=== PATIENT | female | born 1980 | race Caucasian/White ===

== ENCOUNTER 2016-08-12 15:54 | Emergency (ER) | payer OTHER ==
[~2016-08-12] VITALS: Ht 154.9 cm; Wt 68.0 kg
[~2016-08-12 15:54] MED LIST: IRON27TA PO
[2016-08-12 16:07] VITALS: BP 120/85; PULSE 111; RESP 16; TEMP 98.1; O2SAT 98
== END 2016-08-12 16:20 | disposition left against medical advice (07) ==
LOC: PHED 15:54
DX: L08.9 Local infection of the skin and subcutaneous tissue, unspecified (principal)
CPT/HCPCS: 99281

== ENCOUNTER 2016-12-19 13:31 | Emergency (ER) | payer OTHER ==
[~2016-12-19] VITALS: Ht 154.9 cm; Wt 69.6 kg
[2016-12-19 13:45] VITALS: BP 125/89; PULSE 93; RESP 18; TEMP 98.8; O2SAT 100
[2016-12-19] MEDS ORDERED: CLON1 PO (13:56)
--- NOTE | 2016-12-19 14:31 | PD ---
HPI Chief Complaint: Fall Time Seen by Provider: 14:10 Travel History International Travel<30 days: No Contact w/Intl Traveler<30days: No Traveled to known affect area: No History of Present Illness HPI 36-year-old female presents to the emergency room for evaluation of mid back pain, right calf pain, and left-sided neck pain after falling down 4 steps 2 days ago. Patient states she slipped and fell backwards striking her back on the step before sliding down the stairs. She may have hit her head but denies loss of consciousness. Patient states it feels like her neck and leg are spasming. This occurs occasionally throughout the day. She has been taking 200 -800 mg ibuprofen without any relief in symptoms. Patient states she cannot take muscle relaxers because they make her feel sick. She is requesting Lortab for pain. She has been ambulatory since falling. She denies upper or lower extremity paresthesias, saddle anesthesia, or loss of bowel or bladder control, nausea or vomiting, dizziness, headache, and is not taking blood thinners. Her only medication is Klonopin. PFSH Past Medical History Anemia: Yes Anxiety: Yes (PANIC ATTACKS) Depression: No Cancer: Yes (PRE-CANCEROUS CERVICAL 2011) Cardiovascular Problems: Yes Chest Pain: Yes Congestive Heart Failure: No Diabetes: No Diminished Hearing: No Endocrine: No Gastrointestinal Disorders: Yes GERD: No Genitourinary: Yes (BLADDER INFECTIONS CYSTOCELE) Headaches: Yes Hepatitis: No Hiatal Hernia: No Hypertension: No Implanted Vascular Access Dvce: No Kidney Stones: Yes Medical other: Yes (ANEMIA) Musculoskeletal: Yes (BACK PAIN) Neurologic: Yes (BRAIN EMBOLUS ) Psychiatric: Yes Reproductive: Yes (HPV + HX PVD) Respiratory: No Immunizations Current: Yes Seizures: Yes (DRUG INDUCED) Thyroid Disease: No Tetanus Vaccination: > 5 Years Influenza Vaccination: No PNEUMOCCOCAL Vaccine (Year): 2 ?: Not LMP: Now : 2 Para: 2 Ovarian Cysts: Yes Tubal Ligation: Yes (2003) Past Surgical History Abdominal Surgery: Yes (GASTRIC BYPASS 2005) Genitourinary Surgery: Yes (GASTRIC BYPASS) Gynecologic Surgery: Yes (CRYO OF GEN WARTS) Pacemaker: No Other Surgery: Yes (BREAST REDUX/TUMMY TUCK./neck cysts apr 2012) Social History Alcohol Use: Yes (OCC) Tobacco Use: No Substance Use: Yes (DENIES) Allergies-Medications (Allergen,Severity, Reaction): Coded Allergies: Bactrim (Verified Allergy, Severe, Rash, 12/19/16) Ibuprofen (Verified Allergy, Severe, VOMIT, 12/19/16) Sulfa (Verified Allergy, Severe, Rash, 12/19/16) Tramadol (Verified Allergy, Severe, Seizures , 12/19/16) Pt states no allergy to Tramadol Trazodone (Verified Allergy, Severe, Throat swelling, 12/19/16) Lisinopril (Verified Allergy, Unknown, 12/19/16) *MDRO Multi-Drug Resistant Organism (Verified Adverse Reaction, Unknown, ) ESBL Reported Meds & Prescriptions Reported Meds & Active Scripts Active Reported Klonopin (Clonazepam) 1 Mg Tab 1 Mg PO BID Review of Systems Except as stated in HPI: all other systems reviewed are Neg Physical Exam Narrative GENERAL: Well-nourished, well-developed female in no acute distress. Afebrile. Ambulatory. SKIN: Focused skin assessment warm/dry. Small ecchymosis on the right knee and right ankle. HEAD: Normocephalic. EYES: No scleral icterus. No injection or drainage. EARS: Bilateral pinnae and external canals appear within normal limits. Bilateral tympanic membranes without erythema, dullness or perforation. No hemotympanum. BACK: No CVA tenderness. No rash. No point tenderness on palpation of the spine. Full range of motion. CARDIOVASCULAR: Regular rate and rhythm without murmurs, gallops, or rubs. RESPIRATORY: Breath sounds equal bilaterally. No accessory muscle use. BACK: No CVA tenderness. No rash. Mild to moderate point tenderness on palpation of the thoracic spine. Data Data Last Documented VS Vital Signs Date Time Temp Pulse Resp B/P Pulse Ox O2 Delivery O2 Flow Rate FiO2 12/19/16 13:45 98.8 93 18 125/89 100 Orders Spine, Thoracic-Ap/Lat/Sw(3vw) (12/19/16 ) MDM Medical Decision Making Medical Screen Exam Complete: Yes Emergency Medical Condition: Yes Medical Record Reviewed: Yes Differential Diagnosis Muscle spasm, sprain, strain, contusion, fracture unlikely Narrative Course 36-year-old female presents to the emergency room for evaluation of mid back pain, right calf pain, and left neck pain after falling down 4 stairs 2 days ago. Patient fell backward landing on the stairs before sliding down. She may have hit her head but denies loss of consciousness. States ibuprofen hasn't been helping. Physical exam reveals mild ecchymosis to the right knee and right ankle. She has midline tenderness of the thoracic spine. No tenderness of the cervical spine. Full range of motion of the cervical spine. Patient is ambulatory. No focal neurological deficits. No evidence of basilar skull fracture. [facility] CT head and neck rules exclude need for imaging at this time. Patient requested Lortab for pain. She has history of drug-induced mood disorder 2 years ago. According to daughter drug monitoring program, patient last received #30 of narcotic pain medication in July. She was informed that narcotic pain medication is not indicated for contusion. She was offered muscle relaxers but declined. Told to take Tylenol and Motrin, apply ice and follow up with a primary care physician. She understands and agrees to plan. Diagnosis Primary Impression: Contusion of right leg Qualified Code: S80.11XA - Contusion of right leg, initial encounter Additional Impressions: Back contusion Qualified Code: S20.229A - Back contusion, unspecified laterality, initial encounter Cervical strain, acute Qualified Code: S16.1XXA - Cervical strain, acute, initial encounter Referrals: Primary Care Physician Patient Instructions: Contusion in Adults (ED), General Instructions Additional Instructions: Rest and drink plenty of fluids. Take ibuprofen with food as directed, as needed for pain. Apply ice to the affected area for 20 minutes at a time, as needed for pain and swelling. Follow-up with a primary care physician. Return to the emergency room for worsening symptoms. Disposition: 01 DISCHARGE HOME Condition: Stable Amanda Kendall Dec 19, 2016 14:31
--- NOTE | 2016-12-19 15:14 | RADRPT ---
EXAM DATE/TIME: 12/19/2016 14:53 [facility] COMPARISON: No previous studies available for comparison. INDICATIONS : Fell, upper back pain MEDICAL HISTORY : None. SURGICAL HISTORY : None. ENCOUNTER: Initial ACUITY: 2 days PAIN SCORE: 9/10 LOCATION: Bilateral upper back FINDINGS: There is normal alignment of the thoracic vertebral bodies. Vertebral body height is maintained. No evidence of fracture or subluxation. Pedicles are intact at all levels. The paravertebral reflecti ons are not thickened. Clips are seen in the left upper quadrant. CONCLUSION: No acute disease. Marquez Hopkins MD on December 19, 2016 at 15:10 Board Certified Radiologist. This report was verified electronically.
== END 2016-12-19 15:27 | disposition home or self-care (01) ==
LOC: PHEFT 13:31
DX: S80.11XA Contusion of right lower leg, initial encounter (principal); S20.229A Contusion of unspecified back wall of thorax, initial encounter; S16.1XXA Strain of muscle, fascia and tendon at neck level, initial encounter; F41.0 Panic disorder [episodic paroxysmal anxiety]; D64.9 Anemia, unspecified; Z98.84 Bariatric surgery status; W10.9XXA Fall (on) (from) unspecified stairs and steps, initial encounter; Y99.9 Unspecified external cause status; Y93.9 Activity, unspecified; Y92.9 Unspecified place or not applicable
CPT/HCPCS: 72072; 99283

== ENCOUNTER 2017-01-26 14:58 | Emergency (ER) | payer OTHER ==
[~2017-01-26] VITALS: Ht 154.9 cm; Wt 70.0 kg
[~2017-01-26 14:58] MED LIST changes: +CLON1 PO; -IRON27TA PO
[2017-01-26 14:59] VITALS: BP 132/66; PULSE 110; RESP 20; TEMP 98.9; O2SAT 96
--- NOTE | 2017-01-26 15:31 | PD ---
HPI Chief Complaint: Chest Pain Time Seen by Provider: 15:30 Travel History International Travel<30 days: No Contact w/Intl Traveler<30days: No Traveled to known affect area: No History of Present Illness HPI 36 YO F presents to the ED for evaluation of LEFT back upper back pain. Patient states that she is clumsy, but can identify no acute trauma or recent overuse. She denies CP, palpitations, shortness of breath, diaphoresis, nausea vomiting. She also complains of "spider bite" on the right thumb 2 days. She denies IV drug use. She states that "my cat catches a lot of spiders." She denies numbness, tingling, weakness, limitations to range of motion of the hand. No treatment attempt at home. PFSH Past Medical History Anemia: Yes Anxiety: Yes (PANIC ATTACKS) Depression: No Cancer: Yes (PRE-CANCEROUS CERVICAL 2011) Cardiovascular Problems: Yes Chest Pain: Yes Congestive Heart Failure: No Diabetes: No Diminished Hearing: No Endocrine: No Gastrointestinal Disorders: Yes GERD: No Genitourinary: Yes (BLADDER INFECTIONS CYSTOCELE) Headaches: Yes Hepatitis: No Hiatal Hernia: No Hypertension: No Implanted Vascular Access Dvce: No Kidney Stones: Yes Musculoskeletal: Yes (BACK PAIN) Neurologic: Yes (BRAIN EMBOLUS ) Psychiatric: Yes Reproductive: Yes (HPV + HX PVD) Respiratory: No Immunizations Current: Yes Seizures: Yes (DRUG INDUCED) Thyroid Disease: No PNEUMOCCOCAL Vaccine (Year): 2 ?: Not : 2 Para: 2 Ovarian Cysts: Yes Tubal Ligation: Yes (2003) Past Surgical History Abdominal Surgery: Yes (GASTRIC BYPASS 2005) Genitourinary Surgery: Yes (GASTRIC BYPASS) Gynecologic Surgery: Yes (CRYO OF GEN WARTS) Pacemaker: No Other Surgery: Yes (BREAST REDUX/TUMMY TUCK./neck cysts apr 2012) Social History Alcohol Use: Yes (OCC) Tobacco Use: No Substance Use: Yes (DENIES) Allergies-Medications (Allergen,Severity, Reaction): Coded Allergies: Bactrim (Verified Allergy, Severe, Rash, 01/26/17) Ibuprofen (Verified Allergy, Severe, VOMIT, 01/26/17) Sulfa (Verified Allergy, Severe, Rash, 01/26/17) Tramadol (Verified Allergy, Severe, Seizures , 01/26/17) Pt states no allergy to Tramadol Trazodone (Verified Allergy, Severe, Throat swelling, 01/26/17) Lisinopril (Verified Allergy, Unknown, 01/26/17) *MDRO Multi-Drug Resistant Organism (Verified Adverse Reaction, Unknown, ) ESBL Reported Meds & Prescriptions Reported Meds & Active Scripts Active Clindamycin (Clindamycin HCl) 150 Mg Cap 450 Mg PO Q6H 7 Days Reported Klonopin (Clonazepam) 1 Mg Tab 1 Mg PO BID Review of Systems Except as stated in HPI: all other systems reviewed are Neg Physical Exam Narrative GENERAL: Well-nourished, well-developed white female in no acute distress. SKIN: Focused skin assessment warm/dry. SKIN: There is an indurated area in the MP joint of right thumb which measures about 2 cm in diameter. It is fluctuant but there is no pointing or drainage. There is a zone of inflammation around it but no lymphangitis. HEAD: Normocephalic. EYES: No scleral icterus. No injection or drainage. NECK: Supple, trachea midline. No JVD or lymphadenopathy. CARDIOVASCULAR: Regular rate and rhythm without murmurs, gallops, or rubs. RESPIRATORY: Breath sounds clear and equal bilaterally. No accessory muscle use. GASTROINTESTINAL: Abdomen soft, non-tender, nondistended. Active bowel sounds. MUSCULOSKELETAL: No cyanosis, or edema. FOCUSED RIGHT UPPER EXTREMITY EXAM: 2+ radial pulse. Patient retains full, active, painless ROM of the wrist and joints of the hand. Neurovascularly intact. BACK: Nontender without obvious deformity. No CVA tenderness. Data Data Last Documented VS Vital Signs Date Time Temp Pulse Resp B/P Pulse Ox O2 Delivery O2 Flow Rate FiO2 01/26/17 14:59 98.9 110 20 132/66 96 Room Air Orders Chest, Single Ap (01/26/17 ) Lidocaine Pf 1% Inj (Xylocaine-Mpf 1% In (01/26/17 15:45) Abscess Culture And Gram Stain (01/26/17 15:43) Acetamin-Hydrocod 325-5 Mg ([place] 5-325 (01/26/17 16:45) Clindamycin (Cleocin) (01/26/17 16:45) Electrocardiogram (01/26/17 15:46) MDM Medical Decision Making Medical Screen Exam Complete: Yes Emergency Medical Condition: Yes Differential Diagnosis Musculoskeletal pain versus furuncle versus carbuncle versus abscess versus drug -seeking behavior versus other Narrative Course 36 YO F presents to the ED for evaluation of LEFT upper back pain. Patient states that she is clumsy, but can identify no acute trauma or recent overuse. She denies CP, palpitations, shortness of breath, diaphoresis, nausea vomiting. She also complains of "spider bite" on the right thumb 2 days. She denies IV drug use. She states that "my cat catches a lot of spiders." She denies numbness, tingling, weakness, limitations to range of motion of the hand. Vitals reviewed. Patient is tachycardic but reviewing the record reveals this is chronic. On physical exam the chest is clear to auscultation bilaterally. There is no tenderness to palpation of the musculature in the area of the left upper back where she complains of pain. There is an abscess on the MP joint of the right thumb. I&D was performed. Please see my procedure note for details. Chest x-ray reveals no acute abnormality per radiology read. EKG rate 89, sinus rhythm. Normal intervals. Normal axis. No ST-T changes. Reviewed by Dr. Stephens. Patient repeatedly asked for pain medications. She was administered a 5 mg Lortab. She is prescribed clindamycin. She is instructed to return to the ED in 2 days for evaluation of the wound. Patient asked for pain medication prescription on discharge. I explained to her that narcotic pain medications are not indicated. She is stable and discharged home. Procedures Procedure Narrative INCISION AND DRAINAGE OF ABSCESS: The area was prepped and was sterilely draped. A subcutaneous wheal of 1% Xylocaine with a total number 2 mL was used to anesthetize the area properly. A number 11 scalpel was used to make a 0.75-cm incision across the area of the abscess. The abscess was drained, complex loculations were broken down, and irrigated with normal saline. Cultures were obtained. Sterile dressing applied. Patient was advised to keep the wound clean and dry, return for recheck in 2 days. Diagnosis Primary Impression: Abscess Additional Impression: Musculoskeletal back pain Referrals: Primary Care Physician Patient Instructions: Abscess Incision and Drainage (ED), General Instructions , Musculoskeletal Pain (ED) Additional Instructions: Rest, hydrate. Take antibiotics as prescribed, even if your symptoms resolve. Keep the wound clean, dry and covered. Return to the ED in 2 days for recheck of the wound. Return to the ED for any urgent or emergent medical condition. Med/Other Pt SpecificInfo: Prescription(s) given Scripts Clindamycin 150 Mg [id number] Mg PO Q6H 7 Days Ref 0 Prov:Magali Stephens MD 01/26/17 Disposition: 01 DISCHARGE HOME Condition: Stable Shweta Crowe Jan 26, 2017 15:30
[2017-01-26] MEDS ORDERED: LIDOCAINE HCL 1% PF 30 ML VIAL INFIL ONE (15:45)
--- NOTE | 2017-01-26 16:20 | RADRPT ---
EXAM DATE/TIME: 01/26/2017 15:53 [facility] COMPARISON: CHEST SINGLE AP, February 18, 2014, 23:46. INDICATIONS : Chest pain. MEDICAL HISTORY : None. SURGICAL HISTORY : None. ENCOUNTER: Initial ACUITY: 1 day PAIN SCORE: 4/10 LOCATION: Bilateral chest FINDINGS: Portable AP view of the chest demonstrates a normal-sized cardiac silhouette. No effusion, consolidat ion, or pneumothorax is visualized. The bones and soft tissues demonstrate no acute abnormality. CONCLUSION: No acute cardiopulmonary abnormality is identified. Marquez Hdez MD on January 26, 2017 at 16:18 Board Certified Radiologist. This report was verified electronically.
[2017-01-26] MEDS ORDERED: CLINDAMYCIN 150 MG CAP PO ONE (16:45)
[2017-01-26] MEDS ORDERED: ACETAMINOPHEN/HYDROcodone 325 MG/5 MG TAB PO ONE (16:45)
[2017-01-26] MEDS ORDERED: CLIN1CAP5 PO (16:46)
--- NOTE | 2017-01-27 10:44 | EKG ---
Date Performed: 01/26/2017 Time Performed: 15:46:09 PTAGE: 36 years EKG: Sinus rhythm NORMAL ECG PREVIOUS TRACING : 02/18/2014 22.21 DOCTOR: Beny Daniel Interpretating Date/Time 01/27/2017 10:42:46
== END 2017-01-26 17:33 | disposition home or self-care (01) ==
LOC: NEPD 14:58
DX: L02.511 Cutaneous abscess of right hand (principal); M54.6 Pain in thoracic spine; B95.61 Methicillin susceptible Staphylococcus aureus infection as the cause of diseases classified elsewhere; B96.5 Pseudomonas (aeruginosa) (mallei) (pseudomallei) as the cause of diseases classified elsewhere; B96.89 Other specified bacterial agents as the cause of diseases classified elsewhere; Z86.2 Personal history of diseases of the blood and blood-forming organs and certain disorders involving the immune mechanism; Z86.59 Personal history of other mental and behavioral disorders; Z86.79 Personal history of other diseases of the circulatory system; Z87.19 Personal history of other diseases of the digestive system; Z87.448 Personal history of other diseases of urinary system; Z87.39 Personal history of other diseases of the musculoskeletal system and connective tissue; Z86.69 Personal history of other diseases of the nervous system and sense organs; Z87.42 Personal history of other diseases of the female genital tract
CPT/HCPCS: 71010; 86403; 87070; 87077; 87186; 87205; 93005; 99285

== ENCOUNTER 2017-01-29 20:46 | Emergency (ER) | payer OTHER ==
[~2017-01-29] VITALS: Ht 154.9 cm; Wt 75.0 kg
[~2017-01-29 20:46] MED LIST changes: +CLIN1CAP5 PO
[2017-01-29 20:49] VITALS: BP 121/67; PULSE 82; RESP 12; TEMP 98.3; O2SAT 96
[2017-01-29 22:10] VITALS: BP 122/76; PULSE 82; RESP 16; O2SAT 98
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
[2017-01-29] MEDS ORDERED: ACETAMINOPHEN/HYDROcodone 325 MG/5 MG TAB PO ONE (22:45)
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
[2017-01-29 23:43] LABS: AUTOMATED NEUTROPHIL # 2.9 TH/MM3 (1.8-7.7); BASOPHIL % 0.7 % (0.0-2.0); EOSINOPHIL # 0.2 TH/MM3 (0-0.4); EOSINOPHIL % 3.8 % (0.0-4.0); HEMATOCRIT 28.1 % (35.0-46.0); HEMO FLAGS DIFF FINAL; LYMPH % 32.6 % (9.0-44.0); LYMPHOCYTE # 1.8 TH/MM3 (1.0-4.8); MEAN CELL VOLUME 69.4 FL (80.0-100.0); MEAN CORPUSCULAR HEMOGLOBIN 21.7 PG (27.0-34.0); MEAN CORPUSCULAR HGB CONC 31.3 % (32.0-36.0); MONO % 10.7 % (0.0-8.0); NEUT % 52.2 % (16.0-70.0); PLATELET COUNT 235 TH/MM3 (150-450); RED BLOOD COUNT 4.04 MIL/MM3 (4.00-5.30); RED CELL DISTRIBUTION WIDTH 17.8 % (11.6-17.2); WHITE BLOOD COUNT 5.6 TH/MM3 (4.0-11.0)
[2017-01-29 23:57] LABS: APTT (PATIENT) 24.8 SEC (24.3-30.1); INTERNATIONAL NORMALIZED RATIO 0.9 RATIO
[2017-01-30] LABS: ALT (GPT) 38 U/L (10-53); ANION GAP 8 MEQ/L (5-15); AST (GOT) 38 U/L (15-37); BICARBONATE 25.7 MEQ/L (21.0-32.0); BLOOD UREA NITROGEN 15 MG/DL (7-18); CHLORIDE 107 MEQ/L (98-107); GLOMERULAR FILTRATION RATE 104 ML/MIN (>89); MAGNESIUM 2.1 MG/DL (1.5-2.5); POTASSIUM 3.8 MEQ/L (3.5-5.1); SODIUM (NA) 141 MEQ/L (136-145)
[2017-01-30 00:03] LABS: ALKALINE PHOSPHATASE 95 U/L (45-117); TOTAL BILIRUBIN ADULT 0.4 MG/DL (0.2-1.0)
[2017-01-30] MEDS ORDERED: IOHEXOL 350 MG/ML 10 ML VIAL (for RAD DIAG) IV ONE (00:13)
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
--- NOTE | 2017-01-30 00:29 | RADRPT ---
EXAM DATE/TIME: 01/30/2017 00:06 [facility] COMPARISON: No previous studies available for comparison. INDICATIONS : Abdominal pain with rectal bleeding. IV CONTRAST: 95 cc Omnipaque 350 (iohexol) IV ORAL CONTRAST: No oral contrast ingested. RADIATION DOSE: 7.35 CTDIvol (mGy) MEDICAL HISTORY : Hypertension. SURGICAL HISTORY : Gastric bypass. ENCOUNTER: Initial ACUITY: 1 day PAIN SCALE: 5/10 LOCATION: abdomen TECHNIQUE: Volumetric scanning of the abdomen and pelvis was performed. Using automated exposure control and ad justment of the mA and/or kV according to patient size, radiation dose was kept as low as reasonably achievable to obtain optimal diagnostic quality images. DICOM format image data is available electro nically for review and comparison. FINDINGS: Examination of the lung bases demonstrates no abnormality. No pleural fluid is identified. No pulmona ry nodules are present. The liver and spleen are normal in size and no focal defects are identified. There is previous gastric bypass. The gallbladder is absent. The pancreas demonstrates normal contour without evidence of mass or ductal dilatation. The adrenal glands and kidneys appear normal bilatera lly. No hydronephrosis or mass lesions are identified. Examination of the pelvis demonstrates no evidence of free fluid or pelvic mass. No abnormally enlarg ed inguinal or retroperitoneal lymph nodes are present. The bladder is unremarkable. There is emboliz ation of the fallopian tubes bilaterally. There is prominent fluid in the endometrial cavity measurin g 12 mm. A 2 cm cyst is present and there is a prominent lower uterine segment. CONCLUSION: 1. No evidence of acute abdominal or pelvic process. No masses are identified. Prominent lower uterine segment as well as fluid in the endometrial cavity. Left adnexal cyst. Ultras ound examination is recommended if clinically indicated. Román Flores MD on January 30, 2017 at 0:24 Board Certified Radiologist. This report was verified electronically.
[2017-01-30 01:26] LABS: BLOOD, URINE NEG (NEG); COMMENT (UR) CULT NOT INDICATED; CULTURE IF INDICATED CULT NOT INDICATED; GLUCOSE,URINE NEG (NEG); KETONE, URINE NEG (NEG); MUCUS URINE MOD /lpf (OCC); NITRITE,URINE NEG (NEG); SQUAMOUS EPITHELIAL CELL URINE 9 /hpf (0-5); URINE COLOR YELLOW (YELLW/STRAW)
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
[2017-01-30 01:54] VITALS: BP 108/64
== END 2017-01-30 01:59 | disposition home or self-care (01) ==
LOC: NEPC 20:46
DX: S10.93XA Contusion of unspecified part of neck, initial encounter (principal); K62.5 Hemorrhage of anus and rectum; D64.9 Anemia, unspecified; Y04.0XXA Assault by unarmed brawl or fight, initial encounter; I10 Essential (primary) hypertension
CPT/HCPCS: 71111; 72040; 72125; 74177; 80053; 81001; 83735; 84703; 85025; 85610; 85730; 99285; Q9967

== ENCOUNTER 2017-03-30 09:23 | Emergency (ER) | payer OTHER ==
[~2017-03-30] VITALS: Ht 154.9 cm; Wt 66.2 kg
[2017-03-30 09:28] VITALS: BP 109/56; PULSE 86; RESP 16; TEMP 98.2; O2SAT 97
[2017-03-30] MEDS ORDERED: SODIUM CHLOR 0.9% 1000 ML INJ 1,000 ML IV SCH (10:03)
--- NOTE | 2017-03-30 10:08 | PD ---
HPI Chief Complaint: GI Complaint Time Seen by Provider: 09:39 Travel History International Travel<30 days: No Contact w/Intl Traveler<30days: No Traveled to known affect area: No History of Present Illness HPI The patient is a 36-year-old female who presents emergency department for 2 days of abdominal cramping and diarrhea. The patient states that she had steamed shrimp from [employer] 2 days ago, is unsure if she left the shrimp about 2 long, however, then developed diffuse abdominal cramping and diarrhea. The patient describes the diarrhea as loose, occasional bright red blood, and associated with lower abdominal cramping. The patient does have a history of internal hemorrhoids and states that she had some bright red blood on her stool and toilet paper earlier in the week, prior to the diarrhea. The patient is followed by a bias binding folder in [place], [place], for her internal hemorrhoids. The patient does have a history of IBS with constipation type as well as previous gastric bypass. She estimates a 10 pound weight loss over the last month secondary to persistent abdominal-related issues. She also complains of mild suprapubic discomfort and right lower quadrant tenderness. She denies any fever, chills, or sweats. The patient's primary physician is Dr. uDdley. [facility] Past Medical History Anemia: Yes Anxiety: Yes (PANIC ATTACKS) Depression: No Cancer: Yes (PRE-CANCEROUS CERVICAL 2012) Cardiovascular Problems: Yes (htn) Chest Pain: Yes Congestive Heart Failure: No Diabetes: No Diminished Hearing: No Endocrine: No Gastrointestinal Disorders: Yes GERD: No Genitourinary: Yes (BLADDER INFECTIONS CYSTOCELE) Headaches: Yes Hepatitis: No Hiatal Hernia: No Hypertension: No Implanted Vascular Access Dvce: No Kidney Stones: Yes Medical other: Yes (ANEMIA) Musculoskeletal: Yes (BACK PAIN) Neurologic: Yes (BRAIN EMBOLUS ) Psychiatric: Yes Reproductive: Yes (HPV + HX PVD) Respiratory: No Immunizations Current: Yes Seizures: Yes (DRUG INDUCED) Thyroid Disease: No PNEUMOCCOCAL Vaccine (Year): 2 ?: Not LMP: 03/12/17 : 2 Para: 2 Ovarian Cysts: Yes Tubal Ligation: Yes (2003) Past Surgical History Abdominal Surgery: Yes (GASTRIC BYPASS 2005) Genitourinary Surgery: Yes (GASTRIC BYPASS) Gynecologic Surgery: Yes (CRYO OF GEN WARTS) Pacemaker: No Other Surgery: Yes (BREAST REDUX/TUMMY TUCK./neck cysts apr 2012) Social History Alcohol Use: No Tobacco Use: No Substance Use: No (DENIES) Allergies-Medications (Allergen,Severity, Reaction): Coded Allergies: Sulfa (Sulfonamide Antibiotics) (Unverified Allergy, Severe, Rash, 03/30/17 ) ibuprofen (Unverified Allergy, Severe, VOMIT, 03/30/17) sulfamethoxazole (Unverified Allergy, Severe, Rash, 03/30/17) tramadol (Unverified Allergy, Severe, Seizures , 03/30/17) Pt states no allergy to Tramadol trazodone (Unverified Allergy, Severe, Throat swelling, 03/30/17) trimethoprim (Unverified Allergy, Severe, Rash, 03/30/17) lisinopril (Unverified Allergy, Unknown, 03/30/17) *MDRO Multi-Drug Resistant Organism (Verified Adverse Reaction, Unknown, 03/30/17) ESBL Reported Meds & Prescriptions Reported Meds & Active Scripts Active Review of Systems Except as stated in HPI: all other systems reviewed are Neg General / Constitutional: No: Fever Cardiovascular: No: Chest Pain or Discomfort Respiratory: No: Shortness of Breath Gastrointestinal: Positive: Diarrhea, Abdominal Pain, Hematochezia, No: Nausea , Vomiting Genitourinary: No: Dysuria Musculoskeletal: Positive: Cramping Physical Exam Narrative GENERAL: Awake, alert, pleasant 36-year-old female who appears her stated age and is in no acute respiratory distress. SKIN: Focused skin assessment warm/dry. HEAD: Atraumatic. Normocephalic. EYES: Pupils equal and round. No scleral icterus. No injection or drainage. ENT: No nasal bleeding or discharge. Mucous membranes pink and moist. NECK: Trachea midline. No JVD. CARDIOVASCULAR: Regular rate and rhythm. No murmur appreciated. RESPIRATORY: No accessory muscle use. Clear to auscultation. Breath sounds equal bilaterally. GASTROINTESTINAL: Abdomen soft, tender palpation right lower quadrant. No suprapubic tenderness. Back: No CVA tenderness. MUSCULOSKELETAL: No obvious deformities. No clubbing. No cyanosis. No edema. NEUROLOGICAL: Awake and alert. No obvious cranial nerve deficits. Motor grossly within normal limits. Normal speech. PSYCHIATRIC: Appropriate mood and affect; insight and judgment normal. Data Data Last Documented VS Vital Signs Date Time Temp Pulse Resp B/P (MAP) Pulse Ox O2 Delivery O2 Flow Rate FiO2 03/30/17 10:39 96 Room Air 03/30/17 09:28 98.2 86 16 109/56 (73) Orders Orders Complete Blood Count With Diff (03/30/17 10:03) Comprehensive Metabolic Panel (03/30/17 10:03) Lipase (03/30/17 10:03) Lactic Acid (03/30/17 10:03) Urinalysis - C+S If Indicated (03/30/17 10:03) Ct Abd/Pel W/O Iv Contrast (03/30/17 10:03) Iv Access Insert/Monitor (03/30/17 10:03) Ecg Monitoring (03/30/17 10:03) Oximetry (03/30/17 10:03) Ondansetron Inj (Zofran Inj) (03/30/17 10:15) Sodium Chlor 0.9% 1000 Ml Inj (Ns 1000 M (03/30/17 10:03) Sodium Chloride 0.9% Flush (Ns Flush) (03/30/17 10:15) Dicyclomine (Bentyl) (03/30/17 10:15) Labs Laboratory Tests Test 03/30/17 10:20 03/30/17 10:35 Urine Collection Type CLEAN CATCH Urine Color YELLOW Urine Turbidity CLEAR Urine pH 6.0 Urine Specific [place] 1.020 Urine Protein NEG mg/dL Urine Glucose (UA) NEG mg/dL Urine Ketones TRACE mg/dL Urine Occult Blood NEG Urine Nitrite NEG Urine Bilirubin NEG Urine Leukocyte Esterase NEG Urine WBC 0-2 /hpf Urine Squamous Epithelial Cells 0-5 /hpf Microscopic Urinalysis Comment CULT NOT INDICATED White Blood Count 5.5 TH/MM3 Red Blood Count 4.27 MIL/MM3 Hemoglobin 8.9 GM/DL Hematocrit 29.3 % Mean Corpuscular Volume 68.5 FL Mean Corpuscular Hemoglobin 20.7 PG Mean Corpuscular Hemoglobin Concent 30.3 % Red Cell Distribution Width 19.1 % Platelet Count 247 TH/MM3 Mean Platelet Volume 8.3 FL Neutrophils (%) (Auto) 66.8 % Lymphocytes (%) (Auto) 22.0 % Monocytes (%) (Auto) 8.5 % Eosinophils (%) (Auto) 1.7 % Basophils (%) (Auto) 1.0 % Neutrophils # (Auto) 3.6 TH/MM3 Lymphocytes # (Auto) 1.2 TH/MM3 Monocytes # (Auto) 0.5 TH/MM3 Eosinophils # (Auto) 0.1 TH/MM3 Basophils # (Auto) 0.1 TH/MM3 CBC Comment AUTO DIFF Differential Comment AUTO DIFF CONFIRMED Blood Urea Nitrogen 10 MG/DL Creatinine 0.52 MG/DL Random Glucose 85 MG/DL Total Protein 7.5 GM/DL Albumin 2.9 GM/DL Calcium Level 8.2 MG/DL Alkaline Phosphatase 78 U/L Aspartate Amino Transf (AST/SGOT) 29 U/L Alanine Aminotransferase (ALT/SGPT) 25 U/L Total Bilirubin 0.4 MG/DL Sodium Level 138 MEQ/L Potassium Level 4.2 MEQ/L Chloride Level 107 MEQ/L Carbon Dioxide Level 23.6 MEQ/L Anion Gap 7 MEQ/L Estimat Glomerular Filtration Rate 132 ML/MIN Lactic Acid Level 0.9 mmol/L Lipase 177 U/L [facility] Medical Decision Making Medical Screen Exam Complete: Yes Emergency Medical Condition: Yes Medical Record Reviewed: Yes Interpretation(s) Laboratory Tests Test 03/30/17 10:20 03/30/17 10:35 Urine Collection Type CLEAN CATCH Urine Color YELLOW Urine Turbidity CLEAR Urine pH 6.0 Urine Specific [place] 1.020 Urine Protein NEG mg/dL Urine Glucose (UA) NEG mg/dL Urine Ketones TRACE mg/dL Urine Occult Blood NEG Urine Nitrite NEG Urine Bilirubin NEG Urine Leukocyte Esterase NEG Urine WBC 0-2 /hpf Urine Squamous Epithelial Cells 0-5 /hpf Microscopic Urinalysis Comment CULT NOT INDICATED White Blood Count 5.5 TH/MM3 Red Blood Count 4.27 MIL/MM3 Hemoglobin 8.9 GM/DL Hematocrit 29.3 % Mean Corpuscular Volume 68.5 FL Mean Corpuscular Hemoglobin 20.7 PG Mean Corpuscular Hemoglobin Concent 30.3 % Red Cell Distribution Width 19.1 % Platelet Count 247 TH/MM3 Mean Platelet Volume 8.3 FL Neutrophils (%) (Auto) 66.8 % Lymphocytes (%) (Auto) 22.0 % Monocytes (%) (Auto) 8.5 % Eosinophils (%) (Auto) 1.7 % Basophils (%) (Auto) 1.0 % Neutrophils # (Auto) 3.6 TH/MM3 Lymphocytes # (Auto) 1.2 TH/MM3 Monocytes # (Auto) 0.5 TH/MM3 Eosinophils # (Auto) 0.1 TH/MM3 Basophils # (Auto) 0.1 TH/MM3 CBC Comment AUTO DIFF Differential Comment AUTO DIFF CONFIRMED Blood Urea Nitrogen 10 MG/DL Creatinine 0.52 MG/DL Random Glucose 85 MG/DL Total Protein 7.5 GM/DL Albumin 2.9 GM/DL Calcium Level 8.2 MG/DL Alkaline Phosphatase 78 U/L Aspartate Amino Transf (AST/SGOT) 29 U/L Alanine Aminotransferase (ALT/SGPT) 25 U/L Total Bilirubin 0.4 MG/DL Sodium Level 138 MEQ/L Potassium Level 4.2 MEQ/L Chloride Level 107 MEQ/L Carbon Dioxide Level 23.6 MEQ/L Anion Gap 7 MEQ/L Estimat Glomerular Filtration Rate 132 ML/MIN Lactic Acid Level 0.9 mmol/L Lipase 177 U/L CT of the abdomen and pelvis reveals no acute CT findings and the abdomen or pelvis. Differential Diagnosis Differential diagnosis includes colitis, diverticulitis, atypical appendicitis, food poisoning, enteritis, viral syndrome, pyelonephritis, UTI, IBS, IBD. Narrative Course IV was established, labs are drawn and sent, and the patient was placed on cardiac telemetry monitoring and continuous pulse oximetry monitoring. The patient was administered Bentyl and IV fluids. Noncontrast CT abdomen and pelvis was performed to evaluate for possible colitis. The patient's hemoglobin was 8.9, I reviewed the EMR, last hemoglobin was 8.8. White count is unremarkable. BUN and creatinine are within normal limits. LFTs are unremarkable. Lactic acid is normal 0.9. CT reveals no acute findings in the abdomen or pelvis. The patient was reevaluated at 11:32 AM. The patient is currently asymptomatic, had no further diarrhea in the emergency department. Patient's diarrhea could be food poisoning versus infectious diarrhea versus inflammatory diarrhea versus IBS versus IBD. White count lactic acid are normal , I will not treat diarrhea at this time. She is advised to follow-up with her bias binding folder if symptoms persist. Bentyl as needed for cramping. Diagnosis Primary Impression: Diarrhea Qualified Codes: R19.7 - Diarrhea, unspecified Patient Instructions: General Instructions Additional Instructions: Bentyl as directed. Plenty fluids to stay hydrated. Follow-up with your primary physician. Follow-up with her bias binding folder. Please provide the patient a copy of her CT results and lab results at discharge. Return if symptoms worsen or progress. Med/Other Pt SpecificInfo: Prescription(s) given Scripts Dicyclomine (Bentyl) 10 Mg Cap 10 MG PO TID Y for Bowel Management, #15 CAP 0 Refills Prov: Jose Manuel Erickson MD 03/30/17 Disposition: 01 DISCHARGE HOME Condition: Stable Jose Manuel Erickson MD Mar 30, 2017 10:08
[2017-03-30] MEDS ORDERED: ONDANSETRON HCL 4 MG/2 ML VIAL IVP ONE (10:15)
[2017-03-30] MEDS ORDERED: DICYCLOMINE HCL 10 MG CAP PO ONE (10:15)
[2017-03-30] MEDS ORDERED: SODIUM CHLORIDE 0.9% FLUSH 10 ML FLUSH IV FLUSH PRN (10:15)
[2017-03-30 10:39] VITALS: O2SAT 96
[2017-03-30 10:39] LABS: BLOOD, URINE NEG (NEG); GLUCOSE,URINE NEG (NEG); KETONE, URINE TRACE mg/dL (NEG); NITRITE,URINE NEG (NEG)
[2017-03-30 10:40] LABS: METHOD OF COLLECTION CLEAN CATCH; URINE COLOR YELLOW (YELLW/STRAW)
[2017-03-30 10:44] LABS: COMMENT (UR) CULT NOT INDICATED; CULTURE IF INDICATED CULT NOT INDICATED; SQUAMOUS EPITHELIAL CELL URINE 0-5 /hpf (0-5); WBC, URINE 0-2 /hpf (0-5)
[2017-03-30 10:48] LABS: AUTOMATED NEUTROPHIL # 3.6 TH/MM3 (1.8-7.7); BASOPHIL # 0.1 TH/MM3 (0-0.2); EOSINOPHIL # 0.1 TH/MM3 (0-0.4); EOSINOPHIL % 1.7 % (0.0-4.0); HEMATOCRIT 29.3 % (35.0-46.0); LYMPHOCYTE # 1.2 TH/MM3 (1.0-4.8); MEAN CELL VOLUME 68.5 FL (80.0-100.0); MEAN CORPUSCULAR HEMOGLOBIN 20.7 PG (27.0-34.0); MEAN CORPUSCULAR HGB CONC 30.3 % (32.0-36.0); MONO % 8.5 % (0.0-8.0); NEUT % 66.8 % (16.0-70.0); PLATELET COUNT 247 TH/MM3 (150-450); RED BLOOD COUNT 4.27 MIL/MM3 (4.00-5.30); RED CELL DISTRIBUTION WIDTH 19.1 % (11.6-17.2); WHITE BLOOD COUNT 5.5 TH/MM3 (4.0-11.0)
[2017-03-30 10:52] LABS: CHLORIDE 107 MEQ/L (98-107); POTASSIUM 4.2 MEQ/L (3.5-5.1); SODIUM (NA) 138 MEQ/L (136-145)
[2017-03-30 10:54] LABS: HEMO FLAGS AUTO DIFF
[2017-03-30 10:56] LABS: ANION GAP 7 MEQ/L (5-15); BICARBONATE 23.6 MEQ/L (21.0-32.0); BLOOD UREA NITROGEN 10 MG/DL (7-18)
[2017-03-30 10:59] LABS: AST (GOT) 29 U/L (15-37); GLOMERULAR FILTRATION RATE 132 ML/MIN (>89)
[2017-03-30 11:00] LABS: ALT (GPT) 25 U/L (10-53); TOTAL BILIRUBIN ADULT 0.4 MG/DL (0.2-1.0)
[2017-03-30 11:03] LABS: ALKALINE PHOSPHATASE 78 U/L (45-117)
[2017-03-30 11:14] LABS: SCAN/DIFF AUTO DIFF CONFIRMED
--- NOTE | 2017-03-30 11:21 | RADRPT ---
EXAM DATE/TIME: 03/30/2017 11:02 [facility] COMPARISON: No previous studies available for comparison. INDICATIONS : Diffuse abdominal pain with loose stool. ORAL CONTRAST: No oral contrast ingested. RADIATION DOSE: 8.77 CTDIvol (mGy) MEDICAL HISTORY : Hypertension. Irritable bowel syndrome. SURGICAL HISTORY : Gastric bypass. Tubal ligation. ENCOUNTER: Initial ACUITY: 2 days PAIN SCALE: 5/10 LOCATION: abdomen TECHNIQUE: Volumetric scanning of the abdomen and pelvis was performed. Using automated exposure control and ad justment of the mA and/or kV according to patient size, radiation dose was kept as low as reasonably achievable to obtain optimal diagnostic quality images. DICOM format image data is available electro nically for review and comparison. FINDINGS: LOWER LUNGS: The visualized lower lungs are clear. LIVER: Homogeneous density without lesion. There is no dilation of the biliary tree. No calcified gallston es. SPLEEN: Normal size without lesion. PANCREAS: Within normal limits. KIDNEYS: Normal in size and shape. There is no mass, stone, or hydronephrosis. ADRENAL GLANDS: Within normal limits. VASCULAR: There is no aortic aneurysm. BOWEL/MESENTERY: Previous gastric bypass surgery. No abnormal dilatation of bowel. No wall thickening or focal inflamm atory changes. ABDOMINAL WALL: Within normal limits. RETROPERITONEUM: There is no lymphadenopathy. BLADDER: No wall thickening or mass. REPRODUCTIVE: [place] from previous tubal ligation. No evidence of pelvic mass or free fluid INGUINAL: There is no lymphadenopathy or hernia. MUSCULOSKELETAL: Within normal limits for patient age. CONCLUSION: No acute CT findings in the abdomen or pelvis. Marquez Rousseau MD on March 30, 2017 at 11:14 Board Certified Radiologist. This report was verified electronically.
[2017-03-30] MEDS ORDERED: DICY10 PO (11:38)
[2017-03-30 11:51] VITALS: BP 132/78
== END 2017-03-30 11:52 | disposition home or self-care (01) ==
LOC: PHED 09:23
DX: R19.7 Diarrhea, unspecified (principal); I10 Essential (primary) hypertension; Z98.84 Bariatric surgery status
CPT/HCPCS: 74176; 80053; 81001; 83605; 83690; 85025; 96361; 96374; 99285; J2405; J7030

== ENCOUNTER 2017-05-25 09:30 | Emergency (ER) | payer OTHER ==
[~2017-05-25] VITALS: Ht 154.9 cm; Wt 70.0 kg
[~2017-05-25 09:30] MED LIST changes: -CLIN1CAP5 PO; -CLON1 PO; +DICY10 PO
[2017-05-25 09:32] VITALS: BP 153/88; PULSE 75; RESP 16; TEMP 98.1; O2SAT 98
[2017-05-25] MEDS ORDERED: CLON1TAB PO (09:45)
--- NOTE | 2017-05-25 09:57 | PD ---
HPI Chief Complaint: Pain: Acute or Chronic Time Seen by Provider: 09:39 Travel History International Travel<30 days: No Contact w/Intl Traveler<30days: No Traveled to known affect area: No History of Present Illness HPI 36-year-old female presents to the emergency department after running into a ladder last night and falling backwards. Patient states that she was walking at night and ran face first into a ladder hitting her head on the ladder falling backwards and hitting her head on the ground. Patient denies loss of consciousness, dizziness, or blurred vision. Patient states that she is having head, neck, and upper back pain. States her pain increases with movement and decreases with rest. Her pain is mainly located in the midthoracic spine. Patient denies numbness tingling of extremities. She has a remote history of a cervical spine fusion surgery. PFSH Past Medical History Anemia: Yes Anxiety: Yes (PANIC ATTACKS) Depression: No Cancer: Yes (PRE-CANCEROUS CERVICAL 2011) Cardiovascular Problems: Yes (htn) Chest Pain: Yes Congestive Heart Failure: No Diabetes: No Diminished Hearing: No Endocrine: No Gastrointestinal Disorders: Yes GERD: No Genitourinary: Yes (BLADDER INFECTIONS CYSTOCELE) Headaches: Yes Hepatitis: No Hiatal Hernia: No Hypertension: No Implanted Vascular Access Dvce: No Kidney Stones: Yes Medical other: Yes (ANEMIA) Musculoskeletal: Yes (BACK PAIN) Neurologic: Yes (BRAIN EMBOLUS ) Psychiatric: Yes Reproductive: Yes (HPV + HX PVD) Respiratory: No Immunizations Current: Yes Seizures: Yes (DRUG INDUCED) Thyroid Disease: No PNEUMOCCOCAL Vaccine (Year): 2 ?: Not LMP: 04/09/17 : 2 Para: 2 Ovarian Cysts: Yes Tubal Ligation: Yes (2003) Past Surgical History Abdominal Surgery: Yes (GASTRIC BYPASS 2005) Genitourinary Surgery: Yes (GASTRIC BYPASS) Gynecologic Surgery: Yes (CRYO OF GEN WARTS) Pacemaker: No Other Surgery: Yes (BREAST REDUX/TUMMY TUCK./neck cysts apr 2012) Social History Alcohol Use: No Tobacco Use: No Substance Use: No (DENIES) Allergies-Medications (Allergen,Severity, Reaction): Coded Allergies: Sulfa (Sulfonamide Antibiotics) (Unverified Allergy, Severe, Rash, ) ibuprofen (Unverified Allergy, Severe, VOMIT, 05/25/17) sulfamethoxazole (Unverified Allergy, Severe, Rash, 05/25/17) tramadol (Unverified Allergy, Severe, Seizures , 05/25/17) Pt states no allergy to Tramadol trazodone (Unverified Allergy, Severe, Throat swelling, 05/25/17) trimethoprim (Unverified Allergy, Severe, Rash, 05/25/17) lisinopril (Unverified Allergy, Unknown, 05/25/17) *MDRO Multi-Drug Resistant Organism (Verified Adverse Reaction, Unknown, 05/25/17) ESBL Reported Meds & Prescriptions Reported Meds & Active Scripts Active Reported Clonazepam 1 Mg Tab 1 Mg PO BID Review of Systems Except as stated in HPI: all other systems reviewed are Neg Physical Exam Narrative GENERAL: Well-developed well-nourished in no apparent distress, ambulatory SKIN: Focused skin assessment warm/dry. HEAD: Atraumatic. Normocephalic. EYES: Pupils equal and round. No scleral icterus. No injection or drainage. ENT: No nasal bleeding or discharge. Mucous membranes pink and moist. Poor dentition NECK: Trachea midline. No JVD. No midline tenderness, full range of motion. TTP over paraspinous muscles CARDIOVASCULAR: Regular rate and rhythm. No murmur appreciated. RESPIRATORY: No accessory muscle use. Clear to auscultation. Breath sounds equal bilaterally. MUSCULOSKELETAL: No obvious deformities. No clubbing. No cyanosis. No edema. BACK: No CVA tenderness. No rash. Mild point tenderness on palpation of the midthoracic spine. NEUROLOGICAL: Awake and alert. No obvious cranial nerve deficits. Motor grossly within normal limits. Normal speech. PSYCHIATRIC: Appropriate mood and affect; insight and judgment normal. Data Data Last Documented VS Vital Signs Date Time Temp Pulse Resp B/P (MAP) Pulse Ox O2 Delivery O2 Flow Rate FiO2 05/25/17 11:19 05/25/17 09:32 98.1 75 16 98 Room Air Orders Orders Ct Brain W/O Iv Contrast(Rout) (05/25/17 ) Ct Cerv Spine W/O Contrast (05/25/17 ) Acetamin-Hydrocod 325-5 Mg ([place] 5-325 (05/25/17 10:00) Spine, Thoracic-Ap/Lat/Sw(3vw) (05/25/17 ) Ed Discharge Order (05/25/17 10:58) MDM Medical Decision Making Medical Screen Exam Complete: Yes Emergency Medical Condition: Yes Differential Diagnosis Thoracic spine contusion versus fracture versus sprain Head contusion vs fracture vs hematoma neck fracture vs sprain vs strain vs contusion Narrative Course 36-year-old female presents to the emergency department after running into a ladder last night and falling backwards. Patient states that she was walking at night and ran face first into a ladder hitting her head on the ladder falling backwards and hitting her head on the ground. Patient denies loss of consciousness, dizziness, or blurred vision. Patient states that she is having head, neck, and upper back pain. States her pain increases with movement and decreases with rest. Her pain is mainly located in the midthoracic spine. Patient denies numbness tingling of extremities. She has a remote history of a cervical spine fusion surgery. Vital signs stable Physical exam- patient is neurovascularly intact. tenderness to palpation over the midthoracic region, posterior head, and paraspinous musculature of the neck. Because of the history of the cervical spine fusion, will perform CT neck as well Head CT- no acute process Neck CT- no acute process Thoracic spine- no acute process Offered patient muscle relaxers and anti-inflammatories however, patient refused because she has sensitivities of her stomach. I reviewed [facility] and found clonazepam and Suboxone prescriptions. We'll avoid narcotic pain medications at this time as her pain is likely acute on chronic and there are no obvious fractures on the imaging studies. Pt to follow up with PCP within 2-3 days and return to the ED for worsening or persistent symptoms. Diagnosis Primary Impression: Head contusion Qualified Codes: S00.93XA - Contusion of unspecified part of head, initial encounter Additional Impressions: Neck sprain Qualified Codes: S13.9XXA - Sprain of joints and ligaments of unspecified parts of neck, initial encounter Spine pain Referrals: [facility] Additional Instructions: Perform light stretches of the lower back and legs, and alternate heat and ice packs. If you develop increased pain, weakness, fever, chills, or bowel or bladder issues, return to the ED for further treatment and evaluation. Follow up with your primary care physician in 2-3 days. Use [id number] anti-inflammatories as tolerated for your pain. Disposition: DISCHARGE HOME Condition: Stable Gin Jack May 25, 2017 09:57
[2017-05-25] MEDS ORDERED: ACETAMINOPHEN/HYDROcodone 325 MG/5 MG TAB PO ONE (10:00)
--- NOTE | 2017-05-25 10:32 | RADRPT ---
EXAM DATE/TIME: 05/25/2017 10:02 [facility] COMPARISON: CT BRAIN W/O CONTRAST, February 18, 2014, 23:58. INDICATIONS : Patient fell and hit back of head RADIATION DOSE: 56.35 CTDIvol (mGy) MEDICAL HISTORY : Seizures. Hypertension. SURGICAL HISTORY : Tubal ligation. ENCOUNTER: Initial ACUITY: 1 day PAIN SCALE: 9/10 LOCATION: occipital in the future if there is a medical necessity for iodinated contrast. TECHNIQUE: Multiple contiguous axial images were obtained of the head. Using automated exposure control and adj ustment of the mA and/or kV according to patient size, radiation dose was kept as low as reasonably a chievable to obtain optimal diagnostic quality images. DICOM format image data is available electro nically for review and comparison. FINDINGS: CEREBRUM: The ventricles are normal for age. No evidence of midline shift, mass lesion, hemorrhage or acute in farction. No extra-axial fluid collections are seen. POSTERIOR FOSSA: The cerebellum and brainstem are intact. The 4th ventricle is midline. The cerebellopontine angle i s unremarkable. EXTRACRANIAL: The visualized portion of the orbits is intact. SKULL: The calvaria is intact. No evidence of skull fracture. CONCLUSION: 1. No acute intracranial abnormality. Vipul Benson MD on May 25, 2017 at 10:20 Board Certified Radiologist. This report was verified electronically.
--- NOTE | 2017-05-25 10:53 | RADRPT ---
EXAM DATE/TIME: 05/25/2017 10:21 [facility] COMPARISON: No previous studies available for comparison. INDICATIONS : Fell yesterday, pain back of head and mid thoracic spine. MEDICAL HISTORY : None. SURGICAL HISTORY : None. ENCOUNTER: Initial ACUITY: 2 days PAIN SCORE: 9/10 LOCATION: Thoracic spine FINDINGS: There is minimal scoliotic curvature. No evidence of spondylolisthesis. No definite fracture. Mild de generative changes with small primarily ventral endplate osteophytes CONCLUSION: No acute bony findings Marquez Rousseau MD on May 25, 2017 at 10:42 Board Certified Radiologist. This report was verified electronically.
--- NOTE | 2017-05-25 10:54 | RADRPT ---
EXAM DATE/TIME: 05/25/2017 10:02 [facility] COMPARISON: CT CERVICAL SPINE W/O CONTRAST, January 29, 2017, 23:44. INDICATIONS : Patient fell and hit back of head RADIATION DOSE: 29.27 CTDIvol (mGy) MEDICAL HISTORY : Hypertension. Seizures. SURGICAL HISTORY : Tubal ligation. ENCOUNTER: Initial ACUITY: 1 day PAIN SCALE: 9/10 LOCATION: neck TECHNIQUE: Volumetric scanning of the cervical spine was performed. Multiplanar reconstructions in the sagittal, coronal and oblique axial planes were performed. Using automated exposure control and adjustment o f the mA and/or kV according to patient size, radiation dose was kept as low as reasonably achievable to obtain optimal diagnostic quality images. DICOM format image data is available electronically f or review and comparison. FINDINGS: Vertebral body heights are maintained. Osseous structures are intact without evidence for acute bony fracture. Dens is intact. Sagittal alignment is maintained. There is a normal C1-2 relationship. Face ts are normally aligned. There is no significant prevertebral soft tissue hematoma. No significant ce rvical adenopathy or gross mass. There is an 8mm right thyroid lobe nodule. Visualized lung apices ar e clear without pneumothorax. CONCLUSION: 1. No acute fracture or subluxation. Vipul Benson MD on May 25, 2017 at 10:50 Board Certified Radiologist. This report was verified electronically.
== END 2017-05-25 11:37 | disposition home or self-care (01) ==
LOC: NEPD 09:30
DX: S00.93XA Contusion of unspecified part of head, initial encounter (principal); S13.9XXA Sprain of joints and ligaments of unspecified parts of neck, initial encounter; W22.8XXA Striking against or struck by other objects, initial encounter
CPT/HCPCS: 70450; 72072; 72125; 99285

== ENCOUNTER 2017-07-30 14:32 | Emergency (ER) | payer OTHER ==
[~2017-07-30] VITALS: Ht 154.9 cm; Wt 65.2 kg
[~2017-07-30 14:32] MED LIST changes: +CLON1TAB PO; -DICY10 PO
[2017-07-30 14:34] VITALS: BP 146/64; PULSE 94; RESP 17; TEMP 98.4; O2SAT 94
[2017-07-30] MEDS ORDERED: SODIUM CHLOR 0.9% 1000 ML INJ 1,000 ML IV SCH (16:39)
--- NOTE | 2017-07-30 16:39 | PD ---
HPI Chief Complaint: Pain: Acute or Chronic Time Seen by Provider: 16:35 Travel History International Travel<30 days: No Contact w/Intl Traveler<30days: No Traveled to known affect area: No History of Present Illness HPI 37-year-old female presents emergency department with 3 day history of worsening right leg pain from the calf to the thigh. She complains of right knee pain. She denies any specific injury or swelling. Patient also states she has been on her period for the last 3 days with clots and heavy menses. Patient is also had a headache for the past 3 days not relieved by Tylenol or ibuprofen. Patient denies fever, chills, nausea, vomiting, or other symptoms. Pain in the leg as needed 10. It is worse with movement or ambulation. Patient denies back pain numbness, tingling, or weakness. Patient has multiple allergies, and has history of MRSA. PFSH Past Medical History Anemia: Yes Anxiety: Yes (PANIC ATTACKS) Depression: No Cancer: Yes (PRE-CANCEROUS CERVICAL 2011) Cardiovascular Problems: Yes (htn) Chest Pain: Yes Congestive Heart Failure: No Diabetes: No Diminished Hearing: No Endocrine: No Gastrointestinal Disorders: Yes GERD: No Genitourinary: Yes (BLADDER INFECTIONS CYSTOCELE) Headaches: Yes Hepatitis: No Hiatal Hernia: No Hypertension: No Implanted Vascular Access Dvce: No Kidney Stones: Yes Musculoskeletal: Yes (BACK PAIN) Neurologic: Yes (BRAIN EMBOLUS ) Psychiatric: Yes Reproductive: Yes (HPV + HX PVD) Respiratory: No Immunizations Current: Yes Seizures: Yes (DRUG INDUCED) Thyroid Disease: No PNEUMOCCOCAL Vaccine (Year): 2 ?: Not LMP: 07/27/17 : 2 Para: 2 Ovarian Cysts: Yes Tubal Ligation: Yes (2003) Past Surgical History Abdominal Surgery: Yes (GASTRIC BYPASS 2005) Genitourinary Surgery: Yes (GASTRIC BYPASS) Gynecologic Surgery: Yes (CRYO OF GEN WARTS) Pacemaker: No Other Surgery: Yes (BREAST REDUX/TUMMY TUCK./neck cysts apr 2012) Social History Alcohol Use: No Tobacco Use: No Substance Use: No (DENIES) Allergies-Medications (Allergen,Severity, Reaction): Coded Allergies: Sulfa (Sulfonamide Antibiotics) (Unverified Allergy, Severe, Rash, ) ibuprofen (Unverified Allergy, Severe, VOMIT, 05/25/17) sulfamethoxazole (Unverified Allergy, Severe, Rash, 05/25/17) tramadol (Unverified Allergy, Severe, Seizures , 05/25/17) Pt states no allergy to Tramadol trazodone (Unverified Allergy, Severe, Throat swelling, 05/25/17) trimethoprim (Unverified Allergy, Severe, Rash, 05/25/17) lisinopril (Unverified Allergy, Unknown, 05/25/17) *MDRO Multi-Drug Resistant Organism (Verified Adverse Reaction, Unknown, 05/25/17) ESBL Reported Meds & Prescriptions Reported Meds & Active Scripts Active Meloxicam 7.5 Mg Tab 7.5 Mg PO BID Mapap Extra Strength (Acetaminophen) 500 Mg Tab 500 Mg PO Q6HR PRN Reported Clonazepam 1 Mg Tab 1 Mg PO BID Review of Systems Except as stated in HPI: all other systems reviewed are Neg General / Constitutional: No: Fever Eyes: No: Diploplia, Blurred Vision, Photophobia, Drainage, Visual changes HENT: Positive: Headaches, No: Vertigo, Lightheadedness, Sore Throat, Rhinitis , Rhinorrhea, Congestion, Nosebleed, Neck Stiffness, Neck Pain, Dental Difficulties, Earache Cardiovascular: No: Chest Pain or Discomfort Respiratory: No: Shortness of Breath Gastrointestinal: No: Abdominal Pain Genitourinary: No: Dysuria Musculoskeletal: No: Pain Skin: No Rash Neurologic: No: Weakness Psychiatric: No: Depression Endocrine: No: Polydipsia Hematologic/Lymphatic: No: Easy Bruising Physical Exam Narrative GENERAL: Patient appears anxious in mild distress. SKIN: Warm and dry. Normal color. Normal turgor. No rash. HEAD: Atraumatic. Normocephalic. EYES: Pupils equal and round. No scleral icterus. No injection or drainage. ENT: No nasal bleeding or discharge. Mucous membranes pink and moist. TMs are clear bilaterally. No significant sinus tenderness is noted. Posterior pharynx appears normal without significant erythema or swelling. Airways patent. NECK: Trachea midline. Supple and nontender. CARDIOVASCULAR: Regular rate and rhythm. RESPIRATORY: No accessory muscle use. Clear to auscultation. Breath sounds equal bilaterally. GASTROINTESTINAL: Abdomen soft, non-tender, nondistended. Hepatic and splenic margins not palpable. MUSCULOSKELETAL: Extremities without clubbing, cyanosis, or edema. No obvious deformities. Patient complains of pain with palpation of the right lower extremity which seems out of proportion with my exam. She complains of pain all the way down the thigh across the knee into the lower ko, without obvious signs of swelling, effusion, or laxity. NEUROLOGICAL: Awake and alert. No obvious cranial nerve deficits. Motor grossly within normal limits. Five out of 5 muscle strength in the arms and legs. Normal speech. PSYCHIATRIC: Appropriate mood and affect; insight and judgment normal. Data Data Last Documented VS Vital Signs Date Time Temp Pulse Resp B/P (MAP) Pulse Ox O2 Delivery O2 Flow Rate FiO2 07/30/17 14:34 98.4 94 17 146/64 (91) 94 Orders Orders Complete Blood Count With Diff (07/30/17 16:39) Comprehensive Metabolic Panel (07/30/17 16:39) Prothrombin Time / Inr (Pt) (07/30/17 16:39) Act Partial Throm Time (Ptt) (07/30/17 16:39) Urinalysis - C+S If Indicated (07/30/17 16:39) Iv Access Insert/Monitor (07/30/17 16:39) Ecg Monitoring (07/30/17 16:39) Oximetry (07/30/17 16:39) Sodium Chlor 0.9% 1000 Ml Inj (Ns 1000 M (07/30/17 16:39) Sodium Chloride 0.9% Flush (Ns Flush) (07/30/17 16:45) Us Leg Venous Doppler (07/30/17 16:40) Ketorolac Inj (Toradol Inj) (07/30/17 17:00) Ed Discharge Order (07/30/17 18:34) Labs Laboratory Tests Test 07/30/17 17:19 07/30/17 17:29 White Blood Count 6.2 TH/MM3 Red Blood Count 3.72 MIL/MM3 Hemoglobin 10.0 GM/DL Hematocrit 31.1 % Mean Corpuscular Volume 83.7 FL Mean Corpuscular Hemoglobin 27.0 PG Mean Corpuscular Hemoglobin Concent 32.2 % Red Cell Distribution Width 17.0 % Platelet Count 238 TH/MM3 Mean Platelet Volume 8.2 FL Neutrophils (%) (Auto) 60.4 % Lymphocytes (%) (Auto) 28.4 % Monocytes (%) (Auto) 8.2 % Eosinophils (%) (Auto) 2.3 % Basophils (%) (Auto) 0.7 % Neutrophils # (Auto) 3.7 TH/MM3 Lymphocytes # (Auto) 1.8 TH/MM3 Monocytes # (Auto) 0.5 TH/MM3 Eosinophils # (Auto) 0.1 TH/MM3 Basophils # (Auto) 0.0 TH/MM3 CBC Comment DIFF FINAL Differential Comment Prothrombin Time 9.6 SEC Prothromb Time International Ratio 0.9 RATIO Activated Partial Thromboplast Time 24.0 SEC Blood Urea Nitrogen 14 MG/DL Creatinine 0.66 MG/DL Random Glucose 85 MG/DL Total Protein 7.7 GM/DL Albumin 3.2 GM/DL Calcium Level 8.5 MG/DL Alkaline Phosphatase 91 U/L Aspartate Amino Transf (AST/SGOT) 103 U/L Alanine Aminotransferase (ALT/SGPT) 133 U/L Total Bilirubin 0.3 MG/DL Sodium Level 138 MEQ/L Potassium Level 4.1 MEQ/L Chloride Level 105 MEQ/L Carbon Dioxide Level 25.2 MEQ/L Anion Gap 8 MEQ/L Estimat Glomerular Filtration Rate 100 ML/MIN [facility] Medical Decision Making Medical Screen Exam Complete: Yes Emergency Medical Condition: Yes Medical Record Reviewed: Yes Differential Diagnosis Right leg pain. Possible DVT. Headache. Malingering. Narrative Course Patient is medically stable at time of exam. IV access is obtained labs ordered including CBC, CMP, coagulation studies. Ultrasound of the right lower extremity is ordered. Patient is given Toradol 30 mg IV. Ultrasound shows no DVT. Labs show CBC with mild anemia with hemoglobin of 10, hematocrit of 31.1. Which is consistent with previous CBC. Coagulation studies show PT of 9.6, INR 0.9, APTT is 24.0 Chemistries show chemistries unremarkable except for AST of 103, ALT 133, albumin is 3.2. Urinalysis shows urinalysis is unremarkable. Patient will be treated with meloxicam 7.5 mg twice daily #30. Patient also given Mapap 500 mg 2 tabs every 6 hours as needed pain #60. Patient to follow-up with local primary care physician for further treatment as needed. Diagnosis Primary Impression: Leg pain, right Additional Impressions: Back pain, chronic Qualified Codes: M54.5 - Low back pain; G89.29 - Other chronic pain Headache Qualified Codes: R51 - Headache Referrals: [facility] Primary Care Physician Patient Instructions: Arthralgia (ED), General Instructions Additional Instructions: Patient is given Toradol 30 mg IV. Ultrasound shows no DVT. Labs show CBC with mild anemia with hemoglobin of 10, hematocrit of 31.1. Which is consistent with previous CBC. Coagulation studies show PT of 9.6, INR 0.9, APTT is 24.0 Chemistries show chemistries unremarkable except for AST of 103, ALT 133, albumin is 3.2. Urinalysis shows urinalysis is unremarkable. Patient will be treated with meloxicam 7.5 mg twice daily #30. Patient also given Mapap 500 mg 2 tabs every 6 hours as needed pain #60. Patient to follow-up with local primary care physician for further treatment as needed. Med/Other Pt SpecificInfo: Prescription(s) given Scripts Meloxicam (Meloxicam) 7.5 Mg Tab 7.5 MG PO BID for Arthritis Pain, #30 TAB 0 Refills Prov: Magali Stephens MD 07/30/17 Acetaminophen (Mapap Extra Strength) 500 Mg Tab 500 MG PO Q6HR Y for PAIN, #60 TAB 0 Refills Prov: Magali Stephens MD 07/30/17 Disposition: 01 DISCHARGE HOME Condition: Stable Lamont Small Jul 30, 2017 16:39
[2017-07-30] MEDS ORDERED: SODIUM CHLORIDE 0.9% FLUSH 10 ML FLUSH IV FLUSH PRN (16:45)
[2017-07-30] MEDS ORDERED: KETOROLAC TROMETHAMINE 30 MG/ML (IVP) VIAL IV PUSH ONE (17:00)
--- NOTE | 2017-07-30 17:45 | RADRPT ---
EXAM DATE/TIME: 07/30/2017 17:28 [facility] COMPARISON: No previous studies available for comparison. INDICATIONS : Right leg pain. MEDICAL HISTORY : Hypertension. Brain embolus. Seizures. Syncope. HPV. Ovarian cysts. Genital warts. Bladder infec tion. Back pain. Anxiety. Anemia. SURGICAL HISTORY : Tubal ligation. Fat removed from neck. Gastric bypass. Breast reduction. Tummy tuck. ENCOUNTER: Initial ACUITY: 1 day PAIN SCORE: 3/10 LOCATION: Right leg. TECHNIQUE: Venous ultrasound of the leg was performed from the inguinal ligament to the proximal calf. Real-linda e, color Doppler and spectral tracing, compression and augmentation techniques were used. FINDINGS: There is normal compressibility of the deep venous system from the inguinal region to the proximal ca lf. No echogenic clot is seen in the lumen of the common femoral, femoral, popliteal, and posterior tibial veins. There is a normal response of the venous system to proximal and distal augmentation an d respiration. CONCLUSION: Negative exam with no evidence of deep venous thrombosis. Madan Berg MD on July 30, 2017 at 17:41 Board Certified Radiologist. This report was verified electronically.
[2017-07-30 18:13] LABS: AUTOMATED NEUTROPHIL # 3.7 TH/MM3 (1.8-7.7); BASOPHIL % 0.7 % (0.0-2.0); EOSINOPHIL # 0.1 TH/MM3 (0-0.4); EOSINOPHIL % 2.3 % (0.0-4.0); HEMATOCRIT 31.1 % (35.0-46.0); LYMPH % 28.4 % (9.0-44.0); LYMPHOCYTE # 1.8 TH/MM3 (1.0-4.8); MEAN CELL VOLUME 83.7 FL (80.0-100.0); MEAN CORPUSCULAR HGB CONC 32.2 % (32.0-36.0); MEAN PLATELET VOLUME 8.2 FL (7.0-11.0); MONO % 8.2 % (0.0-8.0); MONOCYTE # 0.5 TH/MM3 (0-0.9); NEUT % 60.4 % (16.0-70.0); PLATELET COUNT 238 TH/MM3 (150-450); RED BLOOD COUNT 3.72 MIL/MM3 (4.00-5.30); WHITE BLOOD COUNT 6.2 TH/MM3 (4.0-11.0)
[2017-07-30] MEDS ORDERED: MELO7.5T27 PO (18:20)
[2017-07-30] MEDS ORDERED: MAPA500T13 PO (18:20)
[2017-07-30 18:25] LABS: INTERNATIONAL NORMALIZED RATIO 0.9 RATIO; PROTHROMBIN TIME - PATIENT 9.6 SEC (9.8-11.6)
[2017-07-30 18:36] LABS: ALKALINE PHOSPHATASE 91 U/L (45-117); ALT (GPT) 133 U/L (10-53); TOTAL BILIRUBIN ADULT 0.3 MG/DL (0.2-1.0); TOTAL PROTEIN 7.7 GM/DL (6.4-8.2)
[2017-07-30 18:37] LABS: ALBUMIN 3.2 GM/DL (3.4-5.0); AST (GOT) 103 U/L (15-37); BICARBONATE 25.2 MEQ/L (21.0-32.0); BLOOD UREA NITROGEN 14 MG/DL (7-18); CALCIUM 8.5 MG/DL (8.5-10.1); CHLORIDE 105 MEQ/L (98-107); CREATININE 0.66 MG/DL (0.50-1.00); GLOMERULAR FILTRATION RATE 100 ML/MIN (>89); GLUCOSE,RANDOM 85 MG/DL (74-106); SODIUM (NA) 138 MEQ/L (136-145)
[2017-07-30 18:46] VITALS: BP 138/72
[2017-07-30 18:51] LABS: BILIRUBIN, URINE NEG (NEG); BLOOD, URINE MOD (NEG); GLUCOSE,URINE NEG (NEG); HYALINE CAST, URINE 3 /lpf (RARE); KETONE, URINE NEG (NEG); MUCUS URINE FEW /lpf (OCC); NITRITE,URINE NEG (NEG); PH, URINE 5.5 (5.0-8.5); SQUAMOUS EPITHELIAL CELL URINE 4 /hpf (0-5); URINE COLOR YELLOW (YELLW/STRAW); URINE LEUKOCYTE ESTERASE NEG (NEG)
== END 2017-07-30 18:59 | disposition home or self-care (01) ==
LOC: NEPD 14:32
DX: M79.604 Pain in right leg (principal); M54.5 Low back pain; G89.29 Other chronic pain; R51 Headache; F41.0 Panic disorder [episodic paroxysmal anxiety]; I10 Essential (primary) hypertension; Z98.84 Bariatric surgery status; Z88.2 Allergy status to sulfonamides; Z88.6 Allergy status to analgesic agent; Z88.8 Allergy status to other drugs, medicaments and biological substances
CPT/HCPCS: 80053; 81001; 85025; 85610; 85730; 93971; 99284; J7030

== ENCOUNTER 2017-11-02 10:25 | Inpatient (IN) | payer OTHER ==
[~2017-11-02] VITALS: Ht 154.9 cm; Wt 69.8 kg
[2017-11-02] VITALS (10 sets, daily range): BP systolic 119–138; BP diastolic 64–80; PULSE 63–108; RESP 14–20; TEMP 97.2–99.4; O2SAT 98–100
[~2017-11-02 10:25] MED LIST changes: +MAPA500T13 PO; +MELO7.5T27 PO
[2017-11-02] MEDS ORDERED: SODIUM CHLOR 0.9% 1000 ML INJ 1,000 ML IV SCH ×2 (10:41→14:17)
[2017-11-02] MEDS ORDERED: ONDANSETRON HCL 4 MG/2 ML VIAL IVP ONE (10:45)
[2017-11-02] MEDS ORDERED: SODIUM CHLORIDE 0.9% FLUSH 10 ML FLUSH IV FLUSH PRN (10:45)
[2017-11-02] MEDS ORDERED: MORPHINE SULFATE 4 MG/ML INJ IV PUSH ONE (10:45)
--- NOTE | 2017-11-02 10:54 | PD ---
HPI Chief Complaint: Flank/Kidney Pain Time Seen by Provider: 10:37 Travel History International Travel<30 days: No Contact w/Intl Traveler<30days: No Traveled to known affect area: No History of Present Illness HPI Patient is a 37-year-old female with history of anxiety, depression, chronic pain, kidney stones, constipation who presents the emergency room with complaints of right-sided flank pain. Patient reports that symptoms have been ongoing but intermittent since last night around 7pm. Patient reports that she does have history of kidney stones, reports that symptoms feel similar to when she was diagnosed with kidney stones in the past. Her past surgical history includes "neck surgery", gastric bypass in 2005 and [place], a breast reduction with a tummy tuck in 2011. Patient currently takes tramadol for her chronic pain as well as clonazepam for her anxiety. Patient reports that the right flank pain does radiate to her right groin, pain is mild to moderate in nature. Reports that her pain is most severe to her right side. Reports associated nausea with vomiting with her symptoms. Patient with no fever or chills, denies any hematuria, dysuria, urinary urgency or frequency. Patient reports that yesterday, upon she fell onto her back while she was cutting it down - reports concern that this may also be the cause of her back/flank pain. Reports no fall, denies any trauma to head and neck after this accident. PFSH Past Medical History Anemia: Yes Anxiety: Yes (PANIC ATTACKS) Depression: No Cancer: Yes (PRE-CANCEROUS CERVICAL 2012) Cardiovascular Problems: Yes (htn) Chest Pain: Yes Congestive Heart Failure: No Diabetes: No Diminished Hearing: No Endocrine: No Gastrointestinal Disorders: Yes GERD: No Genitourinary: Yes (BLADDER INFECTIONS CYSTOCELE) Headaches: Yes Hepatitis: No Hiatal Hernia: No Hypertension: No Implanted Vascular Access Dvce: No Kidney Stones: Yes Musculoskeletal: Yes (BACK PAIN) Neurologic: Yes (BRAIN EMBOLUS ) Psychiatric: Yes Reproductive: Yes (HPV + HX PVD) Respiratory: No Immunizations Current: Yes Seizures: Yes (DRUG INDUCED) Thyroid Disease: No PNEUMOCCOCAL Vaccine (Year): 2 ?: Not LMP: 10/29/17 : 2 Para: 2 Ovarian Cysts: Yes Tubal Ligation: Yes (2003) Past Surgical History Abdominal Surgery: Yes (GASTRIC BYPASS 2005) Genitourinary Surgery: Yes (GASTRIC BYPASS) Gynecologic Surgery: Yes ([facility] OF GEN WARTS) Pacemaker: No Other Surgery: Yes (BREAST REDUX/TUMMY TUCK./neck cysts apr 2012) Social History Alcohol Use: No Tobacco Use: No Substance Use: No (DENIES) Allergies-Medications (Allergen,Severity, Reaction): Coded Allergies: trazodone (Verified Allergy, Severe, Throat swelling, 11/02/17) Sulfa (Sulfonamide Antibiotics) (Verified Allergy, Intermediate, Rash, 11/02) sulfamethoxazole (Verified Allergy, Intermediate, Rash, 11/02/17) trimethoprim (Verified Allergy, Intermediate, Rash, 11/02/17) lisinopril (Verified Allergy, Unknown, Unknown, 11/02/17) tramadol (Verified Adverse Reaction, Severe, Seizures , 11/02/17) ibuprofen (Verified Adverse Reaction, Intermediate, Vomiting, 11/02/17) *MDRO Multi-Drug Resistant Organism (Verified Adverse Reaction, Unknown, ESBL, 11/02/17) Reported Meds & Prescriptions Reported Meds & Active Scripts Active Reported Tramadol (Tramadol HCl) 50 Mg Tab 50 Mg PO BID PRN Clonazepam 1 Mg Tab 1 Mg PO HS Review of Systems General / Constitutional: No: Fever Eyes: No: Visual changes HENT: No: Headaches Cardiovascular: No: Chest Pain or Discomfort Respiratory: No: Shortness of Breath Gastrointestinal: Positive: Nausea, No: Vomiting, Diarrhea, Abdominal Pain Genitourinary: Positive: Flank Pain, No: Dysuria Musculoskeletal: No: Pain Skin: No Rash Neurologic: No: Weakness Psychiatric: No: Depression Endocrine: No: Polydipsia Hematologic/Lymphatic: No: Easy Bruising Physical Exam Narrative GENERAL: No acute distress, nontoxic SKIN: Focused skin assessment warm/dry. HEAD: Atraumatic. Normocephalic. EYES: Pupils equal and round. No scleral icterus. No injection or drainage. ENT: No nasal bleeding or discharge. Mucous membranes pink and moist. NECK: Trachea midline. No JVD. CARDIOVASCULAR: Regular rate and rhythm. No murmur appreciated. RESPIRATORY: No accessory muscle use. Clear to auscultation. Breath sounds equal bilaterally. GASTROINTESTINAL: Abdomen soft, non-tender, nondistended. Hepatic and splenic margins not palpable. Patient with right-sided flank pain with tenderness to RLQ MUSCULOSKELETAL: No obvious deformities. No clubbing. No cyanosis. No edema. NEUROLOGICAL: Awake and alert. No obvious cranial nerve deficits. Motor grossly within normal limits. Normal speech. PSYCHIATRIC: Appropriate mood and affect; insight and judgment normal. Data Data Last Documented VS Vital Signs Date Time Temp Pulse Resp B/P (MAP) Pulse Ox O2 Delivery O2 Flow Rate FiO2 11/02/17 12:55 73 14 138/80 (99) 100 Room Air 11/02/17 10:35 99.4 Orders Orders Complete Blood Count With Diff (11/02/17 10:41) Comprehensive Metabolic Panel (11/02/17 10:41) Lipase (11/02/17 10:41) Prothrombin Time / Inr (Pt) (11/02/17 10:41) Act Partial Throm Time (Ptt) (11/02/17 10:41) Urinalysis - C+S If Indicated (11/02/17 10:41) Ct Abd/Pel W/O Iv Contrast (11/02/17 10:41) Iv Access Insert/Monitor (11/02/17 10:41) Oximetry (11/02/17 10:41) NPO (11/02/17 10:41) Morphine Inj (Morphine Inj) (11/02/17 10:45) Ondansetron Inj (Zofran Inj) (11/02/17 10:45) Sodium Chlor 0.9% 1000 Ml Inj (Ns 1000 M (11/02/17 10:41) Sodium Chloride 0.9% Flush (Ns Flush) (11/02/17 10:45) Ed Urine Pregnancytest Poc (11/02/17 10:41) Piperacil-Tazo 3.375 Gm Premix (Zosyn 3. (11/02/17 13:00) Consult General Surgery (11/02/17 ) Admit Order (Ed Use Only) (11/02/17 13:01) Labs Laboratory Tests Test 11/02/17 11:00 11/02/17 11:25 Urine Color YELLOW Urine Turbidity CLEAR Urine pH 5.5 Urine Specific [place] 1.015 Urine Protein NEG mg/dL Urine Glucose (UA) NEG mg/dL Urine Ketones NEG mg/dL Urine Occult Blood NEG Urine Nitrite NEG Urine Bilirubin NEG Urine Urobilinogen 0.2 MG/DL Urine Leukocyte Esterase NEG Urine Squamous Epithelial Cells 0-5 /hpf Microscopic Urinalysis Comment CULT NOT INDICATED White Blood Count 6.3 TH/MM3 Red Blood Count 4.17 MIL/MM3 Hemoglobin 10.9 GM/DL Hematocrit 33.6 % Mean Corpuscular Volume 80.8 FL Mean Corpuscular Hemoglobin 26.2 PG Mean Corpuscular Hemoglobin Concent 32.5 % Red Cell Distribution Width 14.3 % Platelet Count 191 TH/MM3 Mean Platelet Volume 8.0 FL Neutrophils (%) (Auto) 67.9 % Lymphocytes (%) (Auto) 20.4 % Monocytes (%) (Auto) 8.0 % Eosinophils (%) (Auto) 2.4 % Basophils (%) (Auto) 1.3 % Neutrophils # (Auto) 4.2 TH/MM3 Lymphocytes # (Auto) 1.3 TH/MM3 Monocytes # (Auto) 0.5 TH/MM3 Eosinophils # (Auto) 0.2 TH/MM3 Basophils # (Auto) 0.1 TH/MM3 CBC Comment DIFF FINAL Differential Comment Prothrombin Time 10.0 SEC Prothromb Time International Ratio 1.0 RATIO Activated Partial Thromboplast Time 25.6 SEC Blood Urea Nitrogen 7 MG/DL Creatinine 0.56 MG/DL Random Glucose 83 MG/DL Total Protein 8.3 GM/DL Albumin 3.4 GM/DL Calcium Level 8.9 MG/DL Alkaline Phosphatase 88 U/L Aspartate Amino Transf (AST/SGOT) 93 U/L Alanine Aminotransferase (ALT/SGPT) 132 U/L Total Bilirubin 0.7 MG/DL Sodium Level 138 MEQ/L Potassium Level 3.9 MEQ/L Chloride Level 105 MEQ/L Carbon Dioxide Level 27.6 MEQ/L Anion Gap 5 MEQ/L Estimat Glomerular Filtration Rate 121 ML/MIN Lipase 90 U/L [facility] Medical Decision Making Medical Screen Exam Complete: Yes Emergency Medical Condition: Yes Medical Record Reviewed: Yes Interpretation(s) Vital Signs Date Time Temp Pulse Resp B/P (MAP) Pulse Ox O2 Delivery O2 Flow Rate FiO2 11/02/17 10:35 99.4 94 16 137/73 (94) 99 11/02/17 10:33 97.7 94 16 137/73 (94) 99 Room Air Differential Diagnosis Kidney stone, back contusion, pyelonephritis, UTI, muscle strain Narrative Course Patient is a 37-year-old female who presents the emergency room with complaints of right-sided flank pain which has been ongoing but intermittent in nature since last night. Patient does have history of kidney stones in the past, reports that her back pain is complicated as she had an object fall on her back yesterday. During the course of the patients emergency department visit, the patients history, examination, and differential diagnosis were reviewed with the patient. The patient was placed on a cardiac technologist with oximetry and frequent blood pressure monitoring. The patient had an IV access obtained and blood work sent for analysis. The patient was initially provided IV fluids, IV morphine for pain. Patient has tolerated morphine in the past without any adverse effects.. The patients laboratory studies were reviewed and remarkable for: Laboratory Tests Test 11/02/17 11:00 11/02/17 11:25 Urine Color YELLOW (YELLW/STRAW) Urine Turbidity CLEAR (CLEAR) Urine pH 5.5 (5.0-8.5) Urine Specific [place] 1.015 (1.002-1.035) Urine Protein NEG mg/dL (NEG-TRACE) Urine Glucose (UA) NEG mg/dL (NEG) Urine Ketones NEG mg/dL (NEG) Urine Occult Blood NEG (NEG) Urine Nitrite NEG (NEG) Urine Bilirubin NEG (NEG) Urine Urobilinogen 0.2 MG/DL (LESS THAN Urine Leukocyte Esterase NEG (NEG) Urine Squamous Epithelial Cells 0-5 /hpf (0-5) Microscopic Urinalysis Comment CULT NOT INDICATED White Blood Count 6.3 TH/MM3 (4.0-11.0) Red Blood Count 4.17 MIL/MM3 (4.00-5.30) Hemoglobin 10.9 GM/DL (11.6-15.3) Hematocrit 33.6 % (35.0-46.0) Mean Corpuscular Volume 80.8 FL (80.0-100.0) Mean Corpuscular Hemoglobin 26.2 PG (27.0-34.0) Mean Corpuscular Hemoglobin Concent 32.5 % (32.0-36.0) Red Cell Distribution Width 14.3 % (11.6-17.2) Platelet Count 191 TH/MM3 (150-450) Mean Platelet Volume 8.0 FL (7.0-11.0) Neutrophils (%) (Auto) 67.9 % (16.0-70.0) Lymphocytes (%) (Auto) 20.4 % (9.0-44.0) Monocytes (%) (Auto) 8.0 % (0.0-8.0) Eosinophils (%) (Auto) 2.4 % (0.0-4.0) Basophils (%) (Auto) 1.3 % (0.0-2.0) Neutrophils # (Auto) 4.2 TH/MM3 (1.8-7.7) Lymphocytes # (Auto) 1.3 TH/MM3 (1.0-4.8) Monocytes # (Auto) 0.5 TH/MM3 (0-0.9) Eosinophils # (Auto) 0.2 TH/MM3 (0-0.4) Basophils # (Auto) 0.1 TH/MM3 (0-0.2) CBC Comment DIFF FINAL Differential Comment Prothrombin Time 10.0 SEC (9.8-11.6) Prothromb Time International Ratio 1.0 RATIO Activated Partial Thromboplast Time 25.6 SEC (24.3-30.1) Blood Urea Nitrogen 7 MG/DL (7-18) Creatinine 0.56 MG/DL (0.50-1.00) Random Glucose 83 MG/DL (74-106) Total Protein 8.3 GM/DL (6.4-8.2) Albumin 3.4 GM/DL (3.4-5.0) Calcium Level 8.9 MG/DL (8.5-10.1) Alkaline Phosphatase 88 U/L (45-117) Aspartate Amino Transf (AST/SGOT) 93 U/L (15-37) Alanine Aminotransferase (ALT/SGPT) 132 U/L (10-53) Total Bilirubin 0.7 MG/DL (0.2-1.0) Sodium Level 138 MEQ/L (136-145) Potassium Level 3.9 MEQ/L (3.5-5.1) Chloride Level 105 MEQ/L (98-107) Carbon Dioxide Level 27.6 MEQ/L (21.0-32.0) Anion Gap 5 MEQ/L (5-15) Estimat Glomerular Filtration Rate 121 ML/MIN (>89) Lipase 90 U/L (73-393) Radiology studies were reviewed and remarkable for Last Impressions Abdomen/Pelvis CT 11/02/17 1041 Signed Impressions: Service Date/Time: Thursday, November 02, 2017 11:07 - CONCLUSION: 1. Acute appendicitis without abscess, obstruction, free fluid or free air. 2. Previous gastric bypass surgery and tubal ligation. Porter Dwyer MD Patient with acute appendicitis on CT. Call made to general surgery to review case Case reviewed with Dr. Granados who request that patient be kept NPO for surgery today, request admission to medicine service Case reviewed with Dr. Arroyo who accepts pt to service Diagnosis Primary Impression: Appendicitis Qualified Codes: K35.80 - Unspecified acute appendicitis Admitting Information Admitting Physician Requests: Observation Radha Steele DO November 02, 2017 10:54
[2017-11-02] MEDS ORDERED: TRAM50TA PO (11:09)
[2017-11-02 11:37] LABS: AUTOMATED NEUTROPHIL # 4.2 TH/MM3 (1.8-7.7); BASOPHIL # 0.1 TH/MM3 (0-0.2); BASOPHIL % 1.3 % (0.0-2.0); EOSINOPHIL # 0.2 TH/MM3 (0-0.4); EOSINOPHIL % 2.4 % (0.0-4.0); HEMATOCRIT 33.6 % (35.0-46.0); HEMOGLOBIN 10.9 GM/DL (11.6-15.3); LYMPH % 20.4 % (9.0-44.0); LYMPHOCYTE # 1.3 TH/MM3 (1.0-4.8); MEAN CELL VOLUME 80.8 FL (80.0-100.0); MEAN CORPUSCULAR HEMOGLOBIN 26.2 PG (27.0-34.0); MEAN CORPUSCULAR HGB CONC 32.5 % (32.0-36.0); MONOCYTE # 0.5 TH/MM3 (0-0.9); NEUT % 67.9 % (16.0-70.0); PLATELET COUNT 191 TH/MM3 (150-450); RED BLOOD COUNT 4.17 MIL/MM3 (4.00-5.30); RED CELL DISTRIBUTION WIDTH 14.3 % (11.6-17.2); WHITE BLOOD COUNT 6.3 TH/MM3 (4.0-11.0)
--- NOTE | 2017-11-02 11:39 | RADRPT ---
EXAM DATE/TIME: 11/02/2017 11:07 [place] COMPARISON: CT ABDOMEN & PELVIS W/O CONTRAST, March 30, 2017, 11:02. INDICATIONS : Right flank pain. ORAL CONTRAST: No oral contrast ingested. RADIATION DOSE: 6.39 CTDIvol (mGy) MEDICAL HISTORY : Hypertension. SURGICAL HISTORY : Gastric bypass. Tubal ligation. ENCOUNTER: Initial ACUITY: 1 week PAIN SCALE: 10/10 LOCATION: Right flank TECHNIQUE: Volumetric scanning of the abdomen and pelvis was performed. Using automated exposure control and ad justment of the mA and/or kV according to patient size, radiation dose was kept as low as reasonably achievable to obtain optimal diagnostic quality images. DICOM format image data is available electro nically for review and comparison. FINDINGS: Lung bases are clear. No acute findings in the liver, spleen, adrenals, right kidney or pancreas. The re is a tiny 1-2 mm calculus mid pole left kidney. No calcified gallstones or biliary ductal dilatati on. Patient postoperative gastric bypass surgery. Within the right lower quadrant the appendix is dilated to about 16 mm and there is surrounding infla mmatory changes characteristic of a mild acute appendicitis. Previous tubal ligation. CONCLUSION: 1. Acute appendicitis without abscess, obstruction, free fluid or free air. 2. Previous gastric bypass surgery and tubal ligation. Porter Dwyer MD on November 02, 2017 at 11:33 Board Certified Radiologist. This report was verified electronically.
[2017-11-02 11:44] LABS: CHLORIDE 105 MEQ/L (98-107); SODIUM (NA) 138 MEQ/L (136-145)
[2017-11-02 11:46] LABS: ALBUMIN 3.4 GM/DL (3.4-5.0); CALCIUM 8.9 MG/DL (8.5-10.1)
[2017-11-02 11:47] LABS: BICARBONATE 27.6 MEQ/L (21.0-32.0); BLOOD UREA NITROGEN 7 MG/DL (7-18); GLUCOSE,RANDOM 83 MG/DL (74-106)
[2017-11-02 11:50] LABS: ALT (GPT) 132 U/L (10-53); AST (GOT) 93 U/L (15-37); CREATININE 0.56 MG/DL (0.50-1.00); GLOMERULAR FILTRATION RATE 121 ML/MIN (>89)
[2017-11-02 11:51] LABS: BILIRUBIN, URINE NEG (NEG); BLOOD, URINE NEG (NEG); GLUCOSE,URINE NEG (NEG); KETONE, URINE NEG (NEG); NITRITE,URINE NEG (NEG); PH, URINE 5.5 (5.0-8.5); URINE COLOR YELLOW (YELLW/STRAW); URINE LEUKOCYTE ESTERASE NEG (NEG)
[2017-11-02 11:51] LABS: TOTAL BILIRUBIN ADULT 0.7 MG/DL (0.2-1.0)
[2017-11-02 11:52] LABS: TOTAL PROTEIN 8.3 GM/DL (6.4-8.2)
[2017-11-02 11:53] LABS: ALKALINE PHOSPHATASE 88 U/L (45-117)
[2017-11-02 11:57] LABS: SQUAMOUS EPITHELIAL CELL URINE 0-5 /hpf (0-5)
[2017-11-02] MEDS ORDERED: PIPERACIL-TAZO 3.375 GM PREMIX 50 ML IV ONE ×2 (13:00→18:45)
[2017-11-02] MEDS ORDERED: ONDANSETRON HCL 4 MG/2 ML VIAL IVP PRN (14:30)
[2017-11-02] MEDS ORDERED: ACETAMINOPHEN 325 MG TAB PO PRN ×2 (14:30)
[2017-11-02] MEDS ORDERED: NALOXONE HCL 0.4 MG/ML AMP IV PUSH PRN (14:30)
[2017-11-02] MEDS ORDERED: MORPHINE SULFATE 4 MG/ML INJ IV PUSH PRN ×2 (14:45)
--- NOTE | 2017-11-02 16:13 | HHI.HP ---
[facility] Non[facility]Staff Admission Diagnosis Acute appendicitis Diagnoses: Chief Complaint: Abdominal pain Travel History International Travel<30 Days: No Contact w/Intl Traveler <30 Da: No Traveled to Known Affected Are: No History of Present Illness The patient is a 37-year-old female with a past medical history of gastric bypass surgery who is presenting to the hospital with abdominal pain. The patient says she has had abdominal pain on and off for the past couple of weeks but last night it hit her like a wall of bricks. She said the pain is located at the right lower quadrant but spread throughout her stomach, it spread to her right flank and upper back. She says she had nausea and vomiting associated with it. She said she threw up a little bit of blood. She says she could not sleep last night. She says that she has been sweating and having chills for the past couple of weeks. She says for the past few months she has had bright red blood per rectum. She says she has a history of hemorrhoids and has been straining and forcing her stools out. She says she used to follow with a bagger meat but does not anymore. She says she has been binge eating over the past few months and went from a weight of 127-152 pounds. She says she has started her period a couple days ago. 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 History polysubstance abuse Chronic back pain History of HPV virus HCV s/p treatment Anxiety with panic attacks Depression IBS Past Surgical History Gastric bypass surgery Fatty tumor removed Tubal ligation Breast reduction Allergies: Coded Allergies: trazodone (Verified Allergy, Severe, Throat swelling, 11/02/17) Sulfa (Sulfonamide Antibiotics) (Verified Allergy, Intermediate, Rash, 11/02) sulfamethoxazole (Verified Allergy, Intermediate, Rash, 11/02/17) trimethoprim (Verified Allergy, Intermediate, Rash, 11/02/17) lisinopril (Verified Allergy, Unknown, Unknown, 11/02/17) tramadol (Verified Adverse Reaction, Severe, Seizures , 11/02/17) ibuprofen (Verified Adverse Reaction, Intermediate, Vomiting, 11/02/17) *MDRO Multi-Drug Resistant Organism (Verified Adverse Reaction, Unknown, ESBL, 11/02/17) Family History Her mother has breast cancer Social History The patient does not smoke, drink or use illicit substances. Physical Exam Vital Signs Vital Signs Date Time Temp Pulse Resp B/P (MAP) Pulse Ox O2 Delivery O2 Flow Rate FiO2 11/02/17 14:45 97.2 70 18 123/73 (90) 99 11/02/17 14:30 11/02/17 12:55 73 14 138/80 (99) 100 Room Air 11/02/17 11:40 76 14 119/75 (90) 98 Room Air 11/02/17 11:35 14 11/02/17 11:00 98 Room Air 11/02/17 10:35 99.4 94 16 137/73 (94) 99 11/02/17 10:33 97.7 94 16 137/73 (94) 99 Room Air Physical Exam GENERAL: No acute distress. SKIN: Focused skin assessment warm/dry. HEAD: Atraumatic. Normocephalic. EYES: Pupils equal and round. No scleral icterus. No injection or drainage. ENT: No nasal bleeding or discharge. Mucous membranes pink and moist. NECK: Trachea midline. No JVD. CARDIOVASCULAR: Regular rate and rhythm. No murmur appreciated. RESPIRATORY: No accessory muscle use. Clear to auscultation. Breath sounds equal bilaterally. GASTROINTESTINAL: Abdomen soft, nondistended. Hepatic and splenic margins not palpable. Patient with mild tenderness to RLQ MUSCULOSKELETAL: No obvious deformities. No clubbing. No cyanosis. No edema. NEUROLOGICAL: Awake and alert. No obvious cranial nerve deficits. Motor grossly within normal limits. Normal speech. PSYCHIATRIC: Appropriate mood and affect. Laboratory Laboratory Tests Test 11/02/17 11:00 11/02/17 11:25 Urine Color YELLOW Urine Turbidity CLEAR Urine pH 5.5 Urine Specific [place] 1.015 Urine Protein NEG Urine Glucose (UA) NEG Urine Ketones NEG Urine Occult Blood NEG Urine Nitrite NEG Urine Bilirubin NEG Urine Urobilinogen 0.2 Urine Leukocyte Esterase NEG Urine Squamous Epithelial Cells 0-5 Microscopic Urinalysis Comment CULT NOT INDICATED White Blood Count 6.3 Red Blood Count 4.17 Hemoglobin 10.9 Hematocrit 33.6 Mean Corpuscular Volume 80.8 Mean Corpuscular Hemoglobin 26.2 Mean Corpuscular Hemoglobin Concent 32.5 Red Cell Distribution Width 14.3 Platelet Count 191 Mean Platelet Volume 8.0 Neutrophils (%) (Auto) 67.9 Lymphocytes (%) (Auto) 20.4 Monocytes (%) (Auto) 8.0 Eosinophils (%) (Auto) 2.4 Basophils (%) (Auto) 1.3 Neutrophils # (Auto) 4.2 Lymphocytes # (Auto) 1.3 Monocytes # (Auto) 0.5 Eosinophils # (Auto) 0.2 Basophils # (Auto) 0.1 CBC Comment DIFF FINAL Differential Comment Prothrombin Time 10.0 Prothromb Time International Ratio 1.0 Activated Partial Thromboplast Time 25.6 Blood Urea Nitrogen 7 Creatinine 0.56 Random Glucose 83 Total Protein 8.3 Albumin 3.4 Calcium Level 8.9 Alkaline Phosphatase 88 Aspartate Amino Transf (AST/SGOT) 93 Alanine Aminotransferase (ALT/SGPT) 132 Total Bilirubin 0.7 Sodium Level 138 Potassium Level 3.9 Chloride Level 105 Carbon Dioxide Level 27.6 Anion Gap 5 Estimat Glomerular Filtration Rate 121 Lipase 90 Result Diagram: 11/02/17 1125 11/02/17 1125 Imaging Last Impressions Abdomen/Pelvis CT 11/02/17 1041 Signed Impressions: Service Date/Time: Thursday, November 02, 2017 11:07 - CONCLUSION: 1. Acute appendicitis without abscess, obstruction, free fluid or free air. 2. Previous gastric bypass surgery and tubal ligation. Porter Dwyer MD Caprini VTE Risk Assessment Caprini VTE Risk Assessment: Mod/High Risk (score >= 2) Caprini Risk Assessment Model Point Value = 1 Point Value = 2 Point Value = 3 Point Value = 5 Age 41-60 Minor surgery BMI > 25 kg/m2 Swollen legs Varicose veins or History of unexplained or recurrent spontaneous Oral contraceptives or hormone replacement Sepsis (< 1 month) Serious lung disease, including pneumonia (< 1 month) Abnormal pulmonary function Acute myocardial infarction Congestive heart failure (< 1 month) History of inflammatory bowel disease Medical patient at bed rest Age 61-74 Arthroscopic surgery Major open surgery (> 45 min) Laparoscopic surgery (> 45 min) Malignancy Confined to bed (> 72 hours) Immobilizing plaster cast Central venous access Age >= 75 History of VTE Family history of VTE Factor V Leiden Prothrombin [id number] Lupus anticoagulant Anticardiolipin antibodies Elevated serum homocysteine Heparin-induced thrombocytopenia Other congenital or acquired thrombophilia Stroke (< 1 month) Elective arthroplasty Hip, pelvis, or leg fracture Acute spinal cord injury (< 1 month) Prophylaxis Regimen Total Risk Factor Score Risk Level Prophylaxis Regimen 0-1 Low Early ambulation 2 Moderate Order ONE of the following: *Sequential Compression Device (SCD) *Heparin 5000 units SQ BID 3-4 Higher Order ONE of the following medications: *Heparin 5000 units SQ TID *Enoxaparin/Lovenox 40 mg SQ daily (WT < 150 kg, CrCl > 30 mL/min) *Enoxaparin/Lovenox 30 mg SQ daily (WT < 150 kg, CrCl > 10-29 mL/min) *Enoxaparin/Lovenox 30 mg SQ BID (WT < 150 kg, CrCl > 30 mL/min) AND/OR *Sequential Compression Device (SCD) 5 or more Highest Order ONE of the following medications: *Heparin 5000 units SQ TID (Preferred with Epidurals) *Enoxaparin/Lovenox 40 mg SQ daily (WT < 150 kg, CrCl > 30 mL/min) *Enoxaparin/Lovenox 30 mg SQ daily (WT < 150 kg, CrCl > 10-29 mL/min) *Enoxaparin/Lovenox 30 mg SQ BID (WT < 150 kg, CrCl > 30 mL/min) AND *Sequential Compression Device (SCD) Assessment and Plan Assessment and Plan Acute appendicitis The patient presents with abdominal pain and nausea and vomiting. CT of the abdomen shows: Acute appendicitis without abscess, obstruction, free fluid or free air. She received IV Zosyn. General surgery was contacted. - continue IV Zosyn. - follow up with general surgery. - keep the pt NPO with IVFs. - Dilaudid IV for pain control. - antiemetics as needed. BRBPR/ hematemesis The pt endorses BRBPR for the past few months which she attributes to hemorrhoids. She said she recently vomited a little bit of blood. - PPI. - follow CBC and transfuse as needed. She has a history of anemia and hgb is at baseline. Binge eating The pt endorses binge eating recently with significant weight gain. - outpt follow-up with PCP or psychiatry. PPx: SCDs Code Status Full Discussed Condition With Pt, Dr. Steele Physician Certification 2 Midnight Certification Type: Admission for Inpatient Services Order for Inpatient Services The services are ordered in accordance with Medicare regulations or non- Medicare payer requirements, as applicable. In the case of services not specified as inpatient-only, they are appropriately provided as inpatient services in accordance with the 2-midnight benchmark. Estimated LOS (days): 2 days is the estimated time the patient will need to remain in the hospital, assuming treatment plan goals are met and no additional complications. Post-Hospital Plan: Home Madan Chavis DO November 02, 2017 16:13
[2017-11-02] MEDS ORDERED: HYDROmorphone HCL PF 2 MG/ML VIAL IV PRN (16:15)
[2017-11-02] MEDS ORDERED: BUPIVACAINE/EPINEPHRINE 0.5% PF 30 ML VIAL ONE (16:30)
[2017-11-02] MEDS ORDERED: LACTATED RINGER'S 1000 ML IV PRN (16:45)
[2017-11-02] MEDS ORDERED: CHLORHEXIDINE GLUCONATE 2 % 1 PACK (2 CLOTHS) TOPICAL PRN (16:45)
[2017-11-02] MEDS ORDERED: SODIUM CHLORID 0.9% 500 ML IV PRN (16:45)
[2017-11-02] MEDS ORDERED: POVIDONE IODINE 5% (ANTISEPSIS KIT) 4 APPLICATIONS EACH NARE PRN (16:45)
[2017-11-02] MEDS ORDERED: PANTOPRAZOLE SODIUM 40 MG VIAL IV PUSH SCH (17:00)
--- NOTE | 2017-11-02 18:06 | HHI.PR ---
cc: Madan Granados MD Immediate Post Op Note Procedure Date: November 02, 2017 Pre Op Diagnosis: Acute Appendicitis Post Op Diagnosis: Same, without perforation Surgeon: Madan Granados Nutrition Aide(s): Luz Maria Piña CFA Procedure: Laparoscopic appendectomy Findings: Acute appendicitis without perforation Complications: None Specimen(s) removed: Appendix to pathology Estimated blood loss: 10 ml Anesthesia: General Drains: None IVF (1000 ml) Patient to: PACU Patient Condition: Good Date/Time of Procedure: SEE SURGICAL CARE RECORD Madan Granados MD November 02, 2017 18:06
--- NOTE | 2017-11-02 18:18 | MB ---
cc: Madan Granados MD DATE: 11/02/2017 REASON FOR CONSULTATION: Acute appendicitis. HISTORY OF PRESENT ILLNESS: The patient is a 37-year-old female with a history of multiple medical problems, including anxiety, depression, chronic neck and shoulder pain, kidney stones and constipation as well as a history of a gastric bypass, who presents with what was initially thought to be right-sided flank pain. CT scan demonstrated findings consistent with acute appendicitis. Past surgical history includes neck surgery, gastric bypass in [address] [facility], and breast reduction and abdominoplasty in 2011. It was reported that the only medications the patient takes are tramadol and clonazepam. The patient reports that yesterday she fell onto her back while cutting down some tree limbs and had a limb fall across the left flank, not the right. PAST MEDICAL HISTORY: Includes chronic anemia, history of panic attacks, history of precancerous cervical biopsy in 2011, hypertension and GI disorders including anemia, constipation and diarrhea. The patient also has history of bladder infections. She has had a history of drug-induced seizures and psychiatric issues. LMP was 10/29/2017. PAST SURGICAL HISTORY: Other surgeries include tubal ligation in 2003. SOCIAL HISTORY: The patient does not smoke or drink. She denies substance use. ALLERGIES: PATIENT HAS ALLERGY TO TRAZODONE, WHICH CAUSES THROAT SWELLING; SULFA, WHICH CAUSES A RASH; SULFAMETHOXAZOLE, WHICH CAUSES A RASH; TRIMETHOPRIM, WHICH CAUSES A RASH; LISINOPRIL AND REPORTED TO HAVE SEIZURES WITH TRAMADOL. MEDICATIONS: SHE IS REPORTEDLY TAKING TRAMADOL 50 MG P.O. B.I.D. P.R.N. CLONAZEPAM 1 MG P.O. AT BEDTIME. PHYSICAL EXAMINATION: GENERAL: Reveals and obese female who is uncomfortable. VITAL SIGNS: Blood pressure 123/73, pulse 70, respirations 18, temperature 97.2, 99% saturation on room air. HEENT: Sclerae are anicteric. Pupils are reactive. CHEST: Clear to auscultation. CARDIOVASCULAR: Reveals regular rate and rhythm. ABDOMEN: Soft with tenderness and guarding in the right lower quadrant. There is some periumbilical pain as well. There is no suprapubic left lower quadrant or upper abdominal pain or tenderness. Pulses are present. There is a well healed abdominoplasty scar traversing the hips and the suprapubic region. EXTREMITIES: Pulses are present throughout. The patient is able to move all 4 extremities without difficulty. LABORATORY VALUES: Demonstrate WBCs of 6.3; hemoglobin is 10.9; hematocrit 33.6; platelets 191,000. Coags demonstrate INR of 1.0. BUN and creatinine are normal at 7 and 0.56. Potassium is 3.9. ALT is elevated at 132, AST elevated at 93, total bilirubin 0.7, alkaline phosphatase is normal at 88. Lipase normal at 90. IMAGING STUDIES: Demonstrate acute appendicitis without obstruction, free fluid or air and previous gastric bypass and tubal ligation noted. ASSESSMENT: Acute appendicitis without perforation. PLAN: I have discussed with the patient the need for operative intervention at this time versus antibiotic treatment. She would prefer to undergo definitive treatment to minimize her pain and provide expeditious treatment for her acute problem. I have discussed risks of surgery with the patient including, but not limited to bleeding, infection, fistula formation, abscess formation, requiring drainage, postoperative ileus, and some continued pain. Due to the patient's chronic pain problems, I have expressed a significant reluctance to give her any type of narcotics for any length of time. She should only receive approximately 3 days of narcotics after discharge and no refill. I have been very clear about this with the patient. I have discussed remedies, consequences, alternatives and convalescence as well as possibility of an open procedure. She vocalized understanding and agrees to proceed. MD VISHAL Bains/ELLE , 05:59 PM , 06:17 PM ALPHONSO
--- NOTE | 2017-11-02 18:23 | MP ---
cc: Madan Granados MD DATE OF OPERATION: PREOPERATIVE DIAGNOSIS: Acute appendicitis. POSTOPERATIVE DIAGNOSIS: Acute appendicitis without perforation. ANESTHESIA: General endotracheal. SURGEON: Madan Granados MD ESTIMATED BLOOD LOSS: 10 mL FLUIDS: 1000 mL crystalloid. COMPLICATIONS: None. DRAINS: None. SPECIMENS: Appendix to pathology. PROCEDURE IN DETAIL: The patient was taken to the operating room, and placed on the operating table in the supine position. After an adequate level of general endotracheal anesthesia was achieved, the abdomen was prepped and draped in the field. Timeout was taken confirming the correct patient, site, and procedure to be performed. Skin and subcutaneous tissue was infiltrated with local anesthetic and an incision made below the neoumbilicus in this patient's previous abdominoplasty. The peritoneal cavity was directly visualized and the fascia elevated. The 12 mm balloon trocar was inserted and the balloon inflated. The abdomen was insufflated. The patient was placed in Trendelenburg position. A 5 mm 30-degree laparoscope was inserted. Careful examination of the abdominal cavity revealed abnormality in the right lower quadrant only. The patient had the appendix brought up, and it actually appeared to recourse along the cecum. The mesoappendix was dissected off of the appendix with the Harmonic scalpel. This was dissected back to the base of the appendix. A 0 PDS Endoloop was slipped over the appendix and cinched down at the base. The appendix was divided 1 cm distal to this with the Harmonic scalpel, placed into an EndoCatch device, and passed off the table. The appendiceal stump was seen to be clean and dry, as was the mesoappendix. A small amount of fluid in the pelvis and in the right lower quadrant was irrigated and aspirated. With the surgical site clean and dry, insufflation was discontinued. The 5 mm trocars that had been placed in the right lower quadrant and suprapubic region were removed under direct vision. No bleeding was noted from the trocar sites. The laparoscope and umbilical port were removed. The fascia was closed in the umbilicus with 0 Vicryl suture in a simple interrupted fashion. The remaining local anesthetic was injected into the trocar sites in the fascia. The skin was closed at all 3 trocar sites with interrupted buried 4-0 Vicryl suture. All 4 sites were dressed with Steri-Strips. The patient was extubated and taken back to the recovery room in stable condition. She tolerated the procedure well. MD VISHAL Bains/MARYANN , 06:03 PM , 06:22 PM
[2017-11-02] MEDS ORDERED: PIPERACIL-TAZO 4.5 GM PREMIX 100 ML IV ONE (18:45)
[2017-11-02] MEDS: HYDROmorphone HCL PF 2 MG/ML VIAL IV PRN (19:41)
[2017-11-02] MEDS: SODIUM CHLORIDE 0.9% FLUSH 10 ML FLUSH IV FLUSH SCH (19:42)
[2017-11-02] MEDS: DEXT 5%-NACL 0.9% 1000 ML INJ 1,000 ML IV SCH (19:48)
[2017-11-02] MEDS ORDERED: PIPERACIL-TAZO 4.5 GM PREMIX 100 ML IV SCH (20:00)
[2017-11-02] MEDS ORDERED: clonazePAM 1 MG TAB PO SCH (21:00)
[2017-11-02] MEDS: DOCUSATE SODIUM 50 MG/SENNA 8.6 MG TAB PO SCH (21:50)
[2017-11-02] MEDS: SODIUM CHLORIDE 0.9% FLUSH 10 ML FLUSH IV FLUSH PRN (21:52)
[2017-11-03] VITALS: BP 121/74; PULSE 71; RESP 18; TEMP 96.3; O2SAT 99
[2017-11-03] MEDS: HYDROmorphone HCL PF 2 MG/ML VIAL IV PRN ×3 (00:07→10:46)
[2017-11-03] MEDS: SODIUM CHLORIDE 0.9% FLUSH 10 ML FLUSH IV FLUSH PRN ×2 (00:07→06:39)
[2017-11-03] MEDS: DEXT 5%-NACL 0.9% 1000 ML INJ 1,000 ML IV SCH (06:32)
[2017-11-03 07:50] VITALS: BP 135/63; PULSE 56; RESP 20; TEMP 96.7; O2SAT 94
[2017-11-03 08:29] LABS: AUTOMATED NEUTROPHIL # 4.6 TH/MM3 (1.8-7.7); BASOPHIL % 0.3 % (0.0-2.0); EOSINOPHIL % 0.7 % (0.0-4.0); HEMATOCRIT 29.6 % (35.0-46.0); HEMOGLOBIN 9.9 GM/DL (11.6-15.3); LYMPH % 17.5 % (9.0-44.0); LYMPHOCYTE # 1.1 TH/MM3 (1.0-4.8); MEAN CELL VOLUME 81.1 FL (80.0-100.0); MEAN CORPUSCULAR HEMOGLOBIN 27.1 PG (27.0-34.0); MEAN CORPUSCULAR HGB CONC 33.5 % (32.0-36.0); MEAN PLATELET VOLUME 7.7 FL (7.0-11.0); MONO % 10.7 % (0.0-8.0); MONOCYTE # 0.7 TH/MM3 (0-0.9); NEUT % 70.8 % (16.0-70.0); PLATELET COUNT 187 TH/MM3 (150-450); RED BLOOD COUNT 3.66 MIL/MM3 (4.00-5.30); RED CELL DISTRIBUTION WIDTH 14.7 % (11.6-17.2); WHITE BLOOD COUNT 6.4 TH/MM3 (4.0-11.0)
--- NOTE | 2017-11-03 08:46 | HHI.PR ---
Subjective Subjective Notes "I hurt everywhere; my neck, my shoulders, and my belly; the shots make it better" Objective Vitals/I&O Vital Signs Date Time Temp Pulse Resp B/P (MAP) Pulse Ox O2 Delivery O2 Flow Rate FiO2 11/03/17 00:00 96.3 71 18 121/74 (90) 99 11/02/17 20:22 21 11/02/17 18:45 Room Air Labs Laboratory Tests Test 11/02/17 11:00 11/02/17 11:25 11/03/17 08:20 Urine Color YELLOW Urine Turbidity CLEAR Urine pH 5.5 Urine Specific [place] 1.015 Urine Protein NEG Urine Glucose (UA) NEG Urine Ketones NEG Urine Occult Blood NEG Urine Nitrite NEG Urine Bilirubin NEG Urine Urobilinogen 0.2 Urine Leukocyte Esterase NEG Urine Squamous Epithelial Cells 0-5 Microscopic Urinalysis Comment CULT NOT INDICATED White Blood Count 6.3 6.4 Red Blood Count 4.17 3.66 Hemoglobin 10.9 9.9 Hematocrit 33.6 29.6 Mean Corpuscular Volume 80.8 81.1 Mean Corpuscular Hemoglobin 26.2 27.1 Mean Corpuscular Hemoglobin Concent 32.5 33.5 Red Cell Distribution Width 14.3 14.7 Platelet Count 191 187 Mean Platelet Volume 8.0 7.7 Neutrophils (%) (Auto) 67.9 70.8 Lymphocytes (%) (Auto) 20.4 17.5 Monocytes (%) (Auto) 8.0 10.7 Eosinophils (%) (Auto) 2.4 0.7 Basophils (%) (Auto) 1.3 0.3 Neutrophils # (Auto) 4.2 4.6 Lymphocytes # (Auto) 1.3 1.1 Monocytes # (Auto) 0.5 0.7 Eosinophils # (Auto) 0.2 0.0 Basophils # (Auto) 0.1 0.0 CBC Comment DIFF FINAL DIFF FINAL Differential Comment Prothrombin Time 10.0 Prothromb Time International Ratio 1.0 Activated Partial Thromboplast Time 25.6 Blood Urea Nitrogen 7 Creatinine 0.56 Random Glucose 83 Total Protein 8.3 Albumin 3.4 Calcium Level 8.9 Alkaline Phosphatase 88 Aspartate Amino Transf (AST/SGOT) 93 Alanine Aminotransferase (ALT/SGPT) 132 Total Bilirubin 0.7 Sodium Level 138 Potassium Level 3.9 Chloride Level 105 Carbon Dioxide Level 27.6 Anion Gap 5 Estimat Glomerular Filtration Rate 121 Lipase 90 Abdomen: Non-distended, Other (Diffuse, nonspecific tenderness over entire abdomen, lower abdomen slightly more tender), Post-op tenderness A/P Assessment and Plan POD #1 after uncomplicated laparoscopic appendectomy No need for antibiotics; discussed elevated transaminases with medical team. Stable for discharge anytime from GS standpoint; will advance diet. Madan Granados MD November 03, 2017 08:45
[2017-11-03 08:53] LABS: CHLORIDE 108 MEQ/L (98-107); SODIUM (NA) 141 MEQ/L (136-145)
[2017-11-03 08:59] LABS: CALCIUM 8.8 MG/DL (8.5-10.1)
[2017-11-03] MEDS: SODIUM CHLORIDE 0.9% FLUSH 10 ML FLUSH IV FLUSH SCH (09:00)
[2017-11-03] MEDS: DOCUSATE SODIUM 50 MG/SENNA 8.6 MG TAB PO SCH (09:00)
[2017-11-03 09:01] LABS: ALBUMIN 2.8 GM/DL (3.4-5.0); BLOOD UREA NITROGEN 3 MG/DL (7-18); GLUCOSE,RANDOM 112 MG/DL (74-106)
[2017-11-03 09:11] LABS: ALKALINE PHOSPHATASE 73 U/L (45-117); ALT (GPT) 101 U/L (10-53); AST (GOT) 61 U/L (15-37); CREATININE 0.59 MG/DL (0.50-1.00); GLOMERULAR FILTRATION RATE 113 ML/MIN (>89); TOTAL BILIRUBIN ADULT 0.5 MG/DL (0.2-1.0)
[2017-11-03] MEDS ORDERED: PERC10TA27 PO (09:24)
--- NOTE | 2017-11-03 09:25 | HHI.DCPOC ---
Discharge Care Plan Diagnosis: (1) Acute appendicitis Goals to Promote Your Health * To prevent worsening of your condition and complications * To maintain your health at the optimal level Directions to Meet Your Goals Take your medications as prescribed Follow your dietary instruction Follow activity as directed Keep your appointments as scheduled Take your immunizations and boosters as scheduled If your symptoms worsen call your PCP, if no PCP go to Urgent Care Center or Emergency Room Smoking is Dangerous to Your Health. Avoid second hand smoke Call the 24-hour hour crisis hotline for domestic abuse at Madan Chavis DO November 03, 2017 09:25
--- NOTE | 2017-11-03 09:29 | HHI.PR ---
Subjective Remarks The pt was hungry. She complained of abdominal pain. She said she's been constipated. Discussed with surgery. Objective Vitals Vital Signs Date Time Temp Pulse Resp B/P (MAP) Pulse Ox O2 Delivery O2 Flow Rate FiO2 11/03/17 07:09 18 11/03/17 00:00 96.3 71 18 121/74 (90) 99 11/02/17 20:22 98 21 11/02/17 20:00 97.2 100 20 120/64 (82) 99 11/02/17 18:45 97.6 74 16 127/72 (90) 99 Room Air 11/02/17 18:30 63 16 135/73 (93) 99 Room Air 11/02/17 18:30 63 11/02/17 18:15 75 16 120/75 (90) 99 Room Air 11/02/17 18:00 89 16 127/68 (87) 99 Room Air 11/02/17 17:53 108 11/02/17 17:53 98.1 108 16 123/68 (86) 97 Room Air 11/02/17 16:15 98.0 75 16 123/78 (93) 97 11/02/17 14:45 97.2 70 18 123/73 (90) 99 11/02/17 14:30 11/02/17 12:55 73 14 138/80 (99) 100 Room Air 11/02/17 11:40 76 14 119/75 (90) 98 Room Air 11/02/17 11:35 14 11/02/17 11:00 98 Room Air 11/02/17 10:35 99.4 94 16 137/73 (94) 99 11/02/17 10:33 97.7 94 16 137/73 (94) 99 Room Air I/O 11/02/17 11/02/17 11/02/17 11/03/17 11/03/17 11/03/17 07:00 15:00 23:00 07:00 15:00 23:00 Intake Total 1000 ml 2280 ml 1822 ml Output Total 10 ml Balance 1000 ml 2270 ml 1822 ml Intake Oral 0 ml 720 ml IV Total 1000 ml 1280 ml 1102 ml Other 1000 ml Output Estimated Blood Loss 10 ml # Voids 2 3 # Bowel Movements 0 0 Result Diagram: 11/03/17 0820 11/03/17 0820 Imaging Last Impressions Abdomen/Pelvis CT 11/02/17 1041 Signed Impressions: Service Date/Time: Thursday, November 02, 2017 11:07 - CONCLUSION: 1. Acute appendicitis without abscess, obstruction, free fluid or free air. 2. Previous gastric bypass surgery and tubal ligation. Porter Dwyer MD Objective Remarks GENERAL: No acute distress. SKIN: Focused skin assessment warm/dry. HEAD: Atraumatic. Normocephalic. EYES: Pupils equal and round. No scleral icterus. No injection or drainage. ENT: No nasal bleeding or discharge. Mucous membranes pink and moist. NECK: Trachea midline. No JVD. CARDIOVASCULAR: Regular rate and rhythm. No murmur appreciated. RESPIRATORY: No accessory muscle use. Clear to auscultation. Breath sounds equal bilaterally. GASTROINTESTINAL: Abdomen soft, nondistended. Hepatic and splenic margins not palpable. Patient with mild tenderness around incisions. MUSCULOSKELETAL: No obvious deformities. No clubbing. No cyanosis. No edema. NEUROLOGICAL: Awake and alert. No obvious cranial nerve deficits. Motor grossly within normal limits. Normal speech. PSYCHIATRIC: Calm. Procedures Appendectomy A/P Assessment and Plan Acute appendicitis The patient presents with abdominal pain and nausea and vomiting. CT of the abdomen shows: Acute appendicitis without abscess, obstruction, free fluid or free air. She received IV Zosyn. General surgery was contacted. S/p appendectomy. - s/p IV Zosyn. - follow up with general surgery as an outpt. - ADAT. - Percocet as needed. - antiemetics as needed. BRBPR/ hematemesis The pt endorses BRBPR for the past few months which she attributes to hemorrhoids. She said she recently vomited a little bit of blood. - PPI. - follow CBC and transfuse as needed. She has a history of anemia and hgb is at baseline. - will refer to GI upon discharge. Binge eating The pt endorses binge eating recently with significant weight gain. - outpt follow-up with PCP or psychiatry. PPx: SCDs Discharge Planning D/c home Madan Chavis DO November 03, 2017 09:29
[2017-11-03] MEDS ORDERED: PANT40TA3 PO (09:30)
== END 2017-11-03 12:09 | disposition home or self-care (01) | DRG 342 ==
LOC: PHED 10:25 → PHEDA 13:01 → OBSVTOIN 14:18 → PH3B 14:34
PROVIDERS: ADMIT Hospitalist; ATTEND Hospitalist
PROC: 0DTJ4ZZ Resection of Appendix, Percutaneous Endoscopic Approach (ICD-10-PCS; principal; 2017-11-02 16:57)
DX: K35.80 Unspecified acute appendicitis (principal); K92.0 Hematemesis; I10 Essential (primary) hypertension; G89.29 Other chronic pain; M54.9 Dorsalgia, unspecified; K64.9 Unspecified hemorrhoids; D64.9 Anemia, unspecified; Z98.84 Bariatric surgery status; Z87.442 Personal history of urinary calculi; Z87.440 Personal history of urinary (tract) infections; Z88.5 Allergy status to narcotic agent; Z88.2 Allergy status to sulfonamides; Z88.8 Allergy status to other drugs, medicaments and biological substances
CPT/HCPCS: 74176; 80053; 81001; 82948; 83690; 84703; 85025; 85610; 85730; 88304; C9113; J1170; J2270; J2405; J2543; J3010; J7030; J7042; J7120

== ENCOUNTER 2017-11-08 19:11 | Inpatient (IN) | payer OTHER ==
[~2017-11-08] VITALS: Ht 167.6 cm; Wt 70.0 kg
[~2017-11-08 19:11] MED LIST changes: -MAPA500T13 PO; -MELO7.5T27 PO; +PANT40TA3 PO; +PERC10TA27 PO; +TRAM50TA PO
[2017-11-08 19:18] VITALS: BP 153/91; PULSE 71; RESP 18; O2SAT 98
[2017-11-08] MEDS ORDERED: SODIUM CHLOR 0.9% 1000 ML INJ 1,000 ML IV SCH (19:29)
[2017-11-08] MEDS ORDERED: METOCLOPRAMIDE HCL 10 MG/2 ML VIAL IV PUSH ONE (19:30)
[2017-11-08] MEDS ORDERED: SODIUM CHLORIDE 0.9% FLUSH 10 ML FLUSH IVF PRN (19:30)
[2017-11-08] MEDS ORDERED: HYDROmorphone HCL PF 0.5 MG/0.5 ML SYRINGE IV PUSH ONE (19:30)
--- NOTE | 2017-11-08 20:04 | RADRPT ---
EXAM DATE/TIME: 11/08/2017 19:37 [facility] COMPARISON: CHEST SINGLE AP, January 26, 2017, 15:53. INDICATIONS : Evaluate chest for trauma MEDICAL HISTORY : Hypertension. SURGICAL HISTORY : Gastric bypass. Tubal ligation ENCOUNTER: Initial ACUITY: 1 day PAIN SCORE: 0/10 LOCATION: chest FINDINGS: Multiple moderately displaced lateral left-sided rib fractures are noted. Slight asymmetric opacity o jesus the left chest may relate to contusion or layering hemothorax. The cardiac contours are grossly s atisfactory for some rotation. CONCLUSION: Traumatic findings in the left chest. A CT has been ordered Marquez Rousseau MD on November 08, 2017 at 20:00 Board Certified Radiologist. This report was verified electronically.
[2017-11-08 20:06] LABS: AUTOMATED NEUTROPHIL # 2.4 TH/MM3 (1.8-7.7); BASOPHIL % 0.7 % (0.0-2.0); EOSINOPHIL # 0.3 TH/MM3 (0-0.4); EOSINOPHIL % 5.5 % (0.0-4.0); HEMATOCRIT 35.5 % (35.0-46.0); HEMOGLOBIN 11.6 GM/DL (11.6-15.3); LYMPH % 31.1 % (9.0-44.0); LYMPHOCYTE # 1.5 TH/MM3 (1.0-4.8); MEAN CELL VOLUME 80.2 FL (80.0-100.0); MEAN CORPUSCULAR HEMOGLOBIN 26.1 PG (27.0-34.0); MEAN CORPUSCULAR HGB CONC 32.5 % (32.0-36.0); MEAN PLATELET VOLUME 8.8 FL (7.0-11.0); MONO % 11.4 % (0.0-8.0); MONOCYTE # 0.5 TH/MM3 (0-0.9); NEUT % 51.3 % (16.0-70.0); PLATELET COUNT 224 TH/MM3 (150-450); RED BLOOD COUNT 4.43 MIL/MM3 (4.00-5.30); RED CELL DISTRIBUTION WIDTH 15.1 % (11.6-17.2); WHITE BLOOD COUNT 4.7 TH/MM3 (4.0-11.0)
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
[2017-11-08 20:45] LABS: BLOOD UREA NITROGEN 9 MG/DL (7-18); GLOMERULAR FILTRATION RATE 80 ML/MIN (>89); GLUCOSE,RANDOM 82 MG/DL (74-106)
[2017-11-08 20:46] LABS: ALBUMIN 3.5 GM/DL (3.4-5.0); ALKALINE PHOSPHATASE 83 U/L (45-117); ALT (GPT) 107 U/L (10-53); AST (GOT) 114 U/L (15-37); CALCIUM 9.1 MG/DL (8.5-10.1); SODIUM (NA) 140 MEQ/L (136-145); TOTAL BILIRUBIN ADULT 0.6 MG/DL (0.2-1.0); TOTAL PROTEIN 8.8 GM/DL (6.4-8.2)
[2017-11-08 20:47] LABS: CHLORIDE 105 MEQ/L (98-107)
[2017-11-08 20:50] VITALS: BP 134/84; PULSE 65; RESP 18; O2SAT 100
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
[2017-11-08] MEDS ORDERED: IOHEXOL 350 MG/ML 10 ML VIAL (for RAD DIAG) IVCONTRAST ONE (21:50)
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
[2017-11-08 22:21] LABS: PROTHROMBIN TIME - PATIENT 10.1 SEC (9.8-11.6)
[2017-11-08 22:29] VITALS: BP 148/88; PULSE 69; RESP 18; O2SAT 100
[2017-11-08] MEDS ORDERED: SODIUM CHLORIDE 0.9% FLUSH 10 ML FLUSH IV FLUSH PRN (22:30)
[2017-11-08] MEDS ORDERED: ACETAMINOPHEN/HYDROcodone 325 MG/5 MG TAB PO PRN ×2 (22:30)
[2017-11-08] MEDS ORDERED: MAGNESIUM HYDROXIDE SUSP 30 ML CUP PO PRN (22:30)
[2017-11-08] MEDS ORDERED: HYDROmorphone HCL PF 1 MG/ML VIAL IVP PRN (22:30)
[2017-11-08] MEDS ORDERED: ONDANSETRON HCL 4 MG/2 ML VIAL IV PUSH PRN (22:30)
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
[2017-11-08] MEDS: SODIUM CHLOR 0.9% 1000 ML INJ 1,000 ML IV SCH (23:21)
[2017-11-08 23:30] VITALS: BP 130/69
[2017-11-09] MEDS: PANTOPRAZOLE SODIUM 40 MG VIAL IVP SCH ×2 (02:26→23:03)
[2017-11-09 04:47] VITALS: BP 129/59; PULSE 53; RESP 18; TEMP 97.7; O2SAT 100
[2017-11-09 05:54] LABS: AUTOMATED NEUTROPHIL # 2.7 TH/MM3 (1.8-7.7); BASOPHIL % 0.6 % (0.0-2.0); EOSINOPHIL # 0.2 TH/MM3 (0-0.4); EOSINOPHIL % 4.5 % (0.0-4.0); HEMATOCRIT 27.6 % (35.0-46.0); LYMPH % 23.5 % (9.0-44.0); LYMPHOCYTE # 1.1 TH/MM3 (1.0-4.8); MEAN CELL VOLUME 81.1 FL (80.0-100.0); MEAN CORPUSCULAR HEMOGLOBIN 26.5 PG (27.0-34.0); MEAN CORPUSCULAR HGB CONC 32.6 % (32.0-36.0); MEAN PLATELET VOLUME 8.4 FL (7.0-11.0); MONO % 13.1 % (0.0-8.0); MONOCYTE # 0.6 TH/MM3 (0-0.9); NEUT % 58.3 % (16.0-70.0); PLATELET COUNT 168 TH/MM3 (150-450); RED CELL DISTRIBUTION WIDTH 15.2 % (11.6-17.2); WHITE BLOOD COUNT 4.7 TH/MM3 (4.0-11.0)
[2017-11-09] MEDS: HYDROmorphone HCL PF 2 MG/ML VIAL IV PRN ×5 (05:58→21:12)
[2017-11-09] MEDS ORDERED: CYCLOBENZAPRINE HCL 10 MG TAB PO SCH (06:00)
--- NOTE | 2017-11-09 06:26 | RADRPT ---
EXAM DATE/TIME: 11/09/2017 05:29 [facility] COMPARISON: No previous studies available for comparison. INDICATIONS : Left chest trauma, pain left chest and ribs, short of breath MEDICAL HISTORY : appendicitis SURGICAL HISTORY : Gastric bypass. Tubal ligation. ENCOUNTER: Subsequent ACUITY: 2 days PAIN SCORE: 10/10 LOCATION: Left chest FINDINGS: A single view of the chest demonstrates minimal basilar atelectasis. No effusion. Left fourth, fifth and sixth and possibly seventh rib fractures are present laterally. No pneumothorax. No significant e ffusion. CONCLUSION: 1. Multiple left-sided rib fractures. Mild basilar atelectasis. No pneumothorax identified. Porter Dwyer MD on November 09, 2017 at 6:19 Board Certified Radiologist. This report was verified electronically.
[2017-11-09 06:41] LABS: ALBUMIN 2.6 GM/DL (3.4-5.0); ALKALINE PHOSPHATASE 69 U/L (45-117); ALT (GPT) 78 U/L (10-53); AST (GOT) 70 U/L (15-37); BICARBONATE 22.3 MEQ/L (21.0-32.0); BLOOD UREA NITROGEN 7 MG/DL (7-18); CALCIUM 8.1 MG/DL (8.5-10.1); CHLORIDE 110 MEQ/L (98-107); CREATININE 0.49 MG/DL (0.50-1.00); GLOMERULAR FILTRATION RATE 141 ML/MIN (>89); GLUCOSE,RANDOM 64 MG/DL (74-106); SODIUM (NA) 143 MEQ/L (136-145); TOTAL BILIRUBIN ADULT 0.4 MG/DL (0.2-1.0); TOTAL PROTEIN 6.7 GM/DL (6.4-8.2)
[2017-11-09 08:08] VITALS: BP 112/62; PULSE 60; RESP 16; TEMP 97.8; O2SAT 98
[2017-11-09] MEDS: DOCUSATE SODIUM 100 MG CAP PO SCH ×2 (08:52→21:11)
[2017-11-09] MEDS: LIDOCAINE HCL 5% PATCH T-DERMAL SCH (08:54)
[2017-11-09] MEDS: SODIUM CHLOR 0.9% 1000 ML INJ 1,000 ML IV SCH ×2 (09:00→21:13)
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
[2017-11-09] MEDS ORDERED: oxyCODONE/ACETAMINOPHEN 5 MG/325 MG TAB PO PRN (10:30)
[2017-11-09 12:10] VITALS: BP 133/68; PULSE 72; RESP 18; TEMP 97.7; O2SAT 96
[2017-11-09] MEDS: oxyCODONE/ACETAMINOPHEN 10 MG/325 MG TAB PO PRN ×3 (12:16→23:03)
[2017-11-09] MEDS: METHOCARBAMOL 500 MG TAB PO SCH ×2 (13:05→21:10)
[2017-11-09 16:19] VITALS: BP 128/82; PULSE 80; RESP 17; TEMP 98; O2SAT 97
[2017-11-09 20:00] VITALS: BP 141/78; PULSE 83; RESP 18; TEMP 97.5; O2SAT 96
[2017-11-09] MEDS: REMOVE OLD LIDOCAINE PATCH T-DERMAL SCH (21:00)
[2017-11-10 00:01] VITALS: BP 111/73; PULSE 88; RESP 18; TEMP 98.1; O2SAT 96
[2017-11-10] MEDS: HYDROmorphone HCL PF 2 MG/ML VIAL IV PRN ×2 (00:35→05:52)
[2017-11-10] MEDS: oxyCODONE/ACETAMINOPHEN 10 MG/325 MG TAB PO PRN ×5 (04:52→21:40)
[2017-11-10] MEDS: METHOCARBAMOL 500 MG TAB PO SCH ×3 (05:52→21:40)
[2017-11-10] MEDS ORDERED: ONDANSETRON ODT 4 MG TAB PO PRN (06:00)
[2017-11-10 06:19] LABS: BASOPHIL % 0.8 % (0.0-2.0); EOSINOPHIL # 0.3 TH/MM3 (0-0.4); EOSINOPHIL % 6.8 % (0.0-4.0); HEMATOCRIT 30.7 % (35.0-46.0); HEMOGLOBIN 9.9 GM/DL (11.6-15.3); LYMPH % 34.6 % (9.0-44.0); LYMPHOCYTE # 1.5 TH/MM3 (1.0-4.8); MEAN CELL VOLUME 81.2 FL (80.0-100.0); MEAN CORPUSCULAR HEMOGLOBIN 26.2 PG (27.0-34.0); MEAN CORPUSCULAR HGB CONC 32.2 % (32.0-36.0); MEAN PLATELET VOLUME 8.7 FL (7.0-11.0); MONO % 12.3 % (0.0-8.0); MONOCYTE # 0.5 TH/MM3 (0-0.9); NEUT % 45.5 % (16.0-70.0); PLATELET COUNT 206 TH/MM3 (150-450); RED BLOOD COUNT 3.79 MIL/MM3 (4.00-5.30); RED CELL DISTRIBUTION WIDTH 15.3 % (11.6-17.2); WHITE BLOOD COUNT 4.4 TH/MM3 (4.0-11.0)
--- NOTE | 2017-11-10 06:30 | RADRPT ---
EXAM DATE/TIME: 11/10/2017 05:43 [facility] COMPARISON: CHEST SINGLE AP, November 09, 2017, 5:29. INDICATIONS : Shortness of breath. MEDICAL HISTORY : Appendicitis SURGICAL HISTORY : Gastric bypass. Tubal ligation ENCOUNTER: Subsequent ACUITY: 1 week PAIN SCORE: 3/10 LOCATION: Bilateral chest FINDINGS: Low lung volumes are noted bilaterally. Linear atelectasis within the right base. A large area consol idation within the left base. Both more pronounced than prior study. No pneumothorax. No effusions. H eart is normal in size. Left-sided rib fractures not as well-seen on the current study due to differe nces in technique. Gas distended loops of small bowel in the visualized portions of the upper abdomen . CONCLUSION: 1. Hypoinflation with bibasilar consolidation likely related to atelectasis. I cannot exclude an infi ltrate within the left base. Claudio Elmore Jr., MD on November 10, 2017 at 6:27 Board Certified Radiologist. This report was verified electronically.
[2017-11-10 06:44] LABS: BICARBONATE 21.9 MEQ/L (21.0-32.0); CALCIUM 8.1 MG/DL (8.5-10.1); CREATININE 0.64 MG/DL (0.50-1.00)
[2017-11-10 07:15] VITALS: BP 118/69; PULSE 87; RESP 18; TEMP 97.9; O2SAT 98
[2017-11-10] MEDS: DOCUSATE SODIUM 50 MG/SENNA 8.6 MG TAB PO SCH ×2 (08:53→21:40)
[2017-11-10] MEDS: FAMOTIDINE 20 MG TAB PO SCH ×2 (08:53→21:40)
[2017-11-10] MEDS: LIDOCAINE HCL 5% PATCH T-DERMAL SCH (08:54)
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
[2017-11-10] MEDS: HYDROmorphone HCL 2 MG TAB PO PRN ×2 (10:40→19:47)
[2017-11-10] MEDS ORDERED: WALKER WHEELS/F1 MIS (11:01)
[2017-11-10 12:00] VITALS: BP 127/77; PULSE 89; RESP 18; TEMP 97.5; O2SAT 98
[2017-11-10] MEDS: GABAPENTIN 300 MG CAP PO SCH ×2 (12:32→17:00)
[2017-11-10 16:00] VITALS: BP 129/75; PULSE 94; RESP 18; TEMP 98; O2SAT 95
[2017-11-10 20:00] VITALS: BP 134/73; PULSE 95; RESP 19; TEMP 98.2; O2SAT 100
[2017-11-10] MEDS: REMOVE OLD LIDOCAINE PATCH T-DERMAL SCH (21:00)
[2017-11-11] MEDS: oxyCODONE/ACETAMINOPHEN 10 MG/325 MG TAB PO PRN ×2 (00:47→06:32)
[2017-11-11] MEDS ORDERED: clonazePAM 1 MG TAB PO ONE (01:30)
[2017-11-11 02:15] VITALS: BP 111/61; PULSE 85; RESP 18; TEMP 98.3; O2SAT 94
[2017-11-11] MEDS: HYDROmorphone HCL 2 MG TAB PO PRN (02:41)
[2017-11-11 06:15] VITALS: BP 117/74; PULSE 92; RESP 18; TEMP 97.5; O2SAT 96
[2017-11-11] MEDS: METHOCARBAMOL 500 MG TAB PO SCH (06:32)
[2017-11-11] MEDS ORDERED: METH500T3 PO (06:58)
[2017-11-11] MEDS ORDERED: PERI PO (06:58)
[2017-11-11] MEDS ORDERED: OXYC1TAB63 PO (06:58)
--- NOTE | 2017-11-11 07:02 | RADRPT ---
EXAM DATE/TIME: 11/11/2017 06:07 [facility] COMPARISON: CHEST SINGLE AP, November 10, 2017, 5:43. INDICATIONS : Short of breath, chest pain on left side MEDICAL HISTORY : hemopneumothorax SURGICAL HISTORY : Gastric bypass. Tubal ligation. ENCOUNTER: Subsequent ACUITY: 1 week PAIN SCORE: 4/10 LOCATION: Left chest FINDINGS: The lung volumes are diminished. Patchy left basilar airspace disease unchanged. Cardiac and mediasti nal contours are unchanged. Right medial basilar air bronchogram formation also seen and stable. CONCLUSION: No significant change has occurred. Chandan Blackburn MD on November 11, 2017 at 6:59 Board Certified Radiologist. This report was verified electronically.
[2017-11-11] MEDS: LIDOCAINE HCL 5% PATCH T-DERMAL SCH (08:17)
[2017-11-11] MEDS: FAMOTIDINE 20 MG TAB PO SCH (08:18)
[2017-11-11] MEDS: GABAPENTIN 300 MG CAP PO SCH (08:18)
[2017-11-11] MEDS: DOCUSATE SODIUM 50 MG/SENNA 8.6 MG TAB PO SCH (08:18)
[2017-11-11 08:19] VITALS: BP 103/70; PULSE 92; RESP 16; TEMP 97.8; O2SAT 95
[2017-11-11 10:15] VITALS: BP 112/62; PULSE 94; RESP 18; TEMP 98.5; O2SAT 97
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
[2017-11-11] MEDS ORDERED: clonazePAM 1 MG TAB PO SCH (21:00)
== END 2017-11-11 12:04 | disposition home or self-care (01) | DRG 200 ==
LOC: NEPC 19:11 → NEDA 22:29 → N06B 23:47
PROVIDERS: ADMIT Surgery; ATTEND Surgery
DX: S27.2XXA Traumatic hemopneumothorax, initial encounter (principal); S22.42XA Multiple fractures of ribs, left side, initial encounter for closed fracture; S09.90XA Unspecified injury of head, initial encounter; J98.11 Atelectasis; M54.9 Dorsalgia, unspecified; R10.9 Unspecified abdominal pain; V89.2XXA Person injured in unspecified motor-vehicle accident, traffic, initial encounter; Y92.410 Unspecified street and highway as the place of occurrence of the external cause; V43.52XA Car driver injured in collision with other type car in traffic accident, initial encounter; I10 Essential (primary) hypertension; K58.9 Irritable bowel syndrome, unspecified; D64.9 Anemia, unspecified; F41.0 Panic disorder [episodic paroxysmal anxiety]; R40.2413 Glasgow coma scale score 13-15, at hospital admission; Z98.84 Bariatric surgery status; Z98.890 Other specified postprocedural states
CPT/HCPCS: 70450; 71045; 71260; 72125; 72129; 72132; 74177; 80048; 80053; 85025; 85610; 85730; 86850; 86900; 86901; 94150; 94667; 94668; 96361; 96374; 96375; C9113; J1170; J2765; J7030; L0150; Q9967